=== PATIENT | male | born 1950 | race Caucasian/White ===

== ENCOUNTER → 2017-12-02 08:15 | Outpatient (CLI) | payer MEDICARE, OTHER, SELFPAY ==
--- NOTE | 2017-12-02 09:20 | PM.TREADMILL ---
Cardiac Stress Test Report Referral & Results Date Patient Seen: 12/02/17 Time Patient Seen: 09:20 Requesting provider: Arleen Bernstein Indication: Chest pain with activity Rest ECG: Unremarkable Procedure Note: Today following both written and verbal informed consent, the patient was exercised according to a standard [facility] protocol. The patient exercised for a total of 8 min 32 sec achieving a maximum heart rate of 173. Patient's maximum systolic blood pressure was 200. This was an estimated 10.1 MET's. With exercise patient did have some nonspecific ST-T segment changes primarily in leads V5 and V6 the with lots of [id number] variability and these changes rapidly resolved in recovery the suggesting nonischemic nature Occasional PVCs and PACs including 3 and 4 beat runs of his supraventricular type tachycardia Functional aerobic impairment rated about-10% on the active scale, or better than average Impression: No clear evidence of ischemia. ST changes are almost certainly nonischemic. Dysrhythmia as above. Average to better than average exercise capacity Please note: Actual ECG tracings can be found in the PACS system.
== END ==
PROVIDERS: PCP Family Medicine; Visit Provider Family Medicine
DX: R07.89 Other chest pain (principal)
CPT/HCPCS: 93016; 93017; 93018

== ENCOUNTER → 2017-12-23 14:05 | Outpatient (CLI) | payer MEDICARE, OTHER, SELFPAY ==
[2017-12-23 15:36] LABS: BUN Creatinine Ratio 21.7 (6-22); Blood Urea Nitrogen 13 mg/dL (9-20); Calcium 9.5 mg/dL (8.4-10.2); Carbon Dioxide 27 mmol/L (22-32); Chloride 101 mmol/L (98-107); Estimated Glomerular Filt Rate > 60.0 mL/min (>60); Glucose 86 mg/dL (80-110); HEMOLYSIS < 15 (0-50); Potassium 5.1 mmol/L (3.4-5.1); Sodium 139 mmol/L (137-145)
== END ==
PROVIDERS: PCP Family Medicine; Visit Provider Family Medicine
DX: I10 Essential (primary) hypertension (principal)
CPT/HCPCS: 36415; 80048

== ENCOUNTER → 2018-05-23 09:56 | Outpatient (CLI) | payer MEDICARE, OTHER, SELFPAY ==
[2018-05-23 10:52] LABS: BUN Creatinine Ratio 21.4 (6-22); Blood Urea Nitrogen 15 mg/dL (9-20); Calcium 9.2 mg/dL (8.4-10.2); Carbon Dioxide 28 mmol/L (22-32); Chloride 102 mmol/L (98-107); Estimated Glomerular Filt Rate > 60.0 mL/min (>60); Glucose 100 mg/dL (80-110); HEMOLYSIS < 15 (0-50); Potassium 5.1 mmol/L (3.4-5.1); Sodium 143 mmol/L (137-145)
== END ==
PROVIDERS: PCP Family Medicine; Visit Provider Family Medicine
DX: I10 Essential (primary) hypertension (principal)
CPT/HCPCS: 36415; 80048

== ENCOUNTER → 2019-03-08 07:11 | Outpatient (CLI) | payer MEDICARE, OTHER, SELFPAY ==
[2019-03-23 10:54] LABS: Testosterone Total 402
[2019-03-23 10:55] LABS: Testosterone Free 54.4
== END ==
PROVIDERS: PCP Family Medicine; Visit Provider Family Medicine
DX: N40.0 Benign prostatic hyperplasia without lower urinary tract symptoms (principal); R79.89 Other specified abnormal findings of blood chemistry
CPT/HCPCS: 36415; 84402; 84403

== ENCOUNTER 2019-08-15 19:02 | Emergency (ER) | payer MEDICARE, OTHER, SELFPAY ==
[2019-08-15 19:14] VITALS: PULSE 72; RESP 18; O2SAT 100; BMI 27.7
[2019-08-15 20:45] VITALS: BP 141/77; PULSE 69; RESP 16; O2SAT 100
--- NOTE | 2019-08-15 20:48 | DI.CT.S_ITS ---
PROCEDURE: CT HEAD/BRAIN WO CON INDICATIONS: FAll, head lac, syncope TECHNIQUE: Noncontrast 4.5 mm thick angled axial sections acquired from the foramen magnum to the vertex, with coronal and sagittal reformats. For radiation dose reduction, the following was used: automated exposure control, adjustment of mA and/or kV according to patient size. COMPARISON: [facility], CT, CT CERVICAL SPINE WO CON, 08/15/2019, 20:57. FINDINGS: Image quality: Excellent. CSF spaces: Basal cisterns are patent. No extra-axial fluid collections. The ventricles are symmetric in size and shape. Brain: No intracranial bleeds or masses. There is cerebral volume loss for age, with resultant ventricular and sulcal prominence. There are very mild periventricular and deep white matter chronic small vessel ischemic changes. There is intracranial internal carotid artery atherosclerosis. Skull and face: Nondisplaced right occipital and suboccipital skull fracture. Sinuses: Visualized sinuses and mastoids are clear. IMPRESSION: 1. Nondisplaced right occipital and suboccipital skull fracture. 2. No evidence of acute stroke, hemorrhage, or mass. Dictated by: Chevy Boone M.D. on 08/15/2019 at 21:23 Approved by: Chevy Boone M.D. on 08/15/2019 at 21:26
--- NOTE | 2019-08-15 20:48 | DI.RAD.S_ITS ---
PROCEDURE: XR CHEST 1V INDICATIONS: Syncope TECHNIQUE: One view of the chest was acquired. COMPARISON: None. FINDINGS: Surgical changes and devices: None. Lungs and pleura: Lungs are clear. No pleural effusions or pneumothorax. Mediastinum: Mediastinal contours appear normal. Heart size is normal. Bones and chest wall: No suspicious bony lesions. Overlying soft tissues appear unremarkable. IMPRESSION: No evidence acute pulmonary process. Dictated by: Chevy Boone M.D. on 08/15/2019 at 21:31 Approved by: Chevy Boone M.D. on 08/15/2019 at 21:32
--- NOTE | 2019-08-15 20:51 | DI.CT.S_ITS ---
PROCEDURE: CT CERVICAL SPINE WO CON INDICATIONS: Fall, head injury TECHNIQUE: Noncontrast 3 mm thick sections acquired from the skull base to the T4 level. Sagittal and coronal reformats were then constructed. For radiation dose reduction, the following was used: automated exposure control, adjustment of mA and/or kV according to patient size. COMPARISON: None. FINDINGS: Image quality: Excellent. Bones: Nondisplaced right occipital/suboccipital skull fracture. No cervical fractures or dislocations. Visualized superior ribs are intact. Mild to moderate cervical spondylitic change. Soft tissues: Prevertebral soft tissues are normal in thickness. No paravertebral hematomas. No apical pneumothoraces. IMPRESSION: 1. No evidence acute cervical fracture or dislocation. 2. Nondisplaced right occipital/suboccipital skull fracture. Dictated by: Chevy Boone M.D. on 08/15/2019 at 21:26 Approved by: Chevy Boone M.D. on 08/15/2019 at 21:28
--- NOTE | 2019-08-15 20:53 | DI.RAD.S_ITS ---
PROCEDURE: XR SACRUM COCCYX MIN 2V INDICATIONS: Fall, coccyx pain TECHNIQUE: 3 views of the sacrum and coccyx acquired. COMPARISON: None. FINDINGS: Bones: No fractures or dislocations. Bone detail somewhat limited on lateral view. No suspicious bony lesions. Soft tissues: Visualized bowel gas pattern is normal. No suspicious soft tissue densities. IMPRESSION: No definite coccygeal fracture identified. However, bone detail somewhat limited on lateral view. Dictated by: Chevy Boone M.D. on 08/15/2019 at 21:32 Approved by: Chevy Boone M.D. on 08/15/2019 at 21:33
--- NOTE | 2019-08-15 21:04 | ED.FALL ---
HPI - Fall <KEI Hu - Last Filed: 08/15/19 22:38> General Chief Complaint: Fall Stated Complaint: head injury s/p fall with LOC Time Seen by Provider: 08/15/19 20:31 Source: patient Mode of arrival: Ambulatory History of Present Illness HPI Narrative: 68yo male presents to the emergency department stating that he was walking to [employer] after a wine tasting when he suddenly felt dizzy. The next thing he remembers was waking up in seen his friends and the paramedics looking over him. Bystanders state a slight he slipped and fell and was unconscious for a few minutes. Patient states he had taken his blood pressure medication earlier that day, had been urinating more frequently, and believes that he had more wine than usual at the wine tasting. He also reported walking quickly up a hill on the way to synagogue. Patient complains of a laceration to the back of his head as well as tailbone pain. He denies taking any blood thinners. He denies chest pain, shortness of breath, fevers, chills, nausea, vomiting, diarrhea, dizziness at this time, headaches, vision changes or other concerns. Patient denies any limb weakness, or other injuries such as shoulder pain or ankle pain. Related Data Home Medications Medication Instructions Recorded Confirmed cholecalciferol (vitamin D3) 1,000 PO QDAY #0 u 02/01/17 02/26/19 [Vitamin D3] sildenafil (pulm.hypertension) 20 mg PO #0 02/01/17 02/26/19 Previous Rx's Medication Instructions Recorded alfuzosin 10 mg PO QDAY #90 tab 06/09/16 latanoprost 0.005 % eye drops 1 drop EYE-BOTH QPM #7.5 ml 08/22/18 hydrochlorothiazide 25 mg tablet 25 mg PO DAILY #90 tab 10/23/18 losartan 100 mg tablet 100 mg PO DAILY #90 tab 12/26/18 Allergies Allergy/AdvReac Type Severity Reaction Status Date / Time No Known Drug Allergies Allergy Verified 02/26/19 11:30 <Julia Josue DO - Last Filed: 08/16/19 03:33> General Source: patient and family Limitations: no limitations History of Present Illness HPI Narrative: Patient was evaluated by myself. Initial history was given to me by nurse practitioner Prince. Patient states that he had walked up a hill and [place] to 1 of the local churches after having been in a wine tasting. He states that he had not had anything to eat for most of the day and has had minimal fluid intake. He states he thinks he probably got a little bit more alcohol than he thought he had a wine tasting. He recalls walking up the steps to the synagogue and slipping and does not recall hitting his head. The next thing he remembered was people as well as the medics standing over him. Patient states he has little bit of pain in the back of his head. Him and his family and friends at bedside states there was blood at the scene it looks that like he had fallen onto flat concrete but was unclear as there were stairs. Patient is unsure if his tetanus is up-to-date. He denies any vision changes, no difficulty with speech, no neck pain, no back pain. He does have pain in his tailbone. He states it feels like it is bruised. He does not feel short of breath. Denies any nausea no vomiting. No lightheadedness or dizziness. He denies any numbness or tingling in his extremities. Review of Systems <KEI Hu - Last Filed: 08/15/19 22:38> Review of Systems Narrative: REVIEW OF SYSTEMS: GENERAL: Denies fever or chills. HENT: Reports head trauma, see HPI. EYES: No loss of vision, double vision, eye pain, or irritation. CARDIOVASCULAR: No chest pain. Reports syncope, see HPI. RESPIRATORY: No shortness of breath or cough. GASTROINTESTINAL: No nausea, vomiting, diarrhea, or constipation. GENITOURINARY: No flank pain or dysuria. MUSCULOSKELETAL: No pain, weakness, or deformities. INTEGUMENTARY: Reports laceration to the back side, see HPI. NEURO: No numbness, tingling, memory loss, or confusion. PSYCH: No behavior or mood changes. Patient History <KEI Hu - Last Filed: 08/15/19 22:38> Medical History BPH (benign prostatic hyperplasia) (Chronic) Essential hypertension (Chronic) Surgical History S/P Mohs surgery for basal cell carcinoma (Resolved) S/P right rotator cuff repair (Resolved) Family History Father Coronary artery disease Brother Coronary artery disease Mother Coronary artery disease Diabetes mellitus Social History marital status: lives independently: Yes occupational status: other (Retired) Smoking Status: Former smoker alcohol intake: current substance use type: does not use Smoking Status: Former smoker alcohol intake frequency: 0-2 drinks per day Alcohol type: wine and hard liquor Substance Use Type: does not use Exam <KEI Hu - Last Filed: 08/15/19 22:38> Initial Vital Signs Initial Vital Signs: Vital Signs Pulse Rate 72 08/15/19 19:14 Respiratory Rate 18 08/15/19 19:14 Pulse Oximetry 100 08/15/19 19:14 PHYSICAL EXAMINATION: GENERAL: Well groomed, alert, and cooperative Answers questions promptly and appropriately. Vital signs noted. HENT: A 2 cm laceration noted to the occipital area of head, very many amount of swelling around laceration, bleeding controlled with gauze upon arrival. Ear canals patent, Oral mucosa is pink and moist, no caries or lesions present. Pharynx without erythema. EYES: PERRLA, EOMIs, conjunctiva pink, sclera white, no periorbital swelling. NECK: Full range of motion, nontender. Patient was placed in C-collar for precautions. LYMPH: No lymphadenopathy. CHEST: Normal to inspection and without deformities. CARDIOVASCULAR: S1 and S2 sounds normal. Regular rate and rhythm, no murmurs, clicks, or bruits. No pedal edema. RESPIRATORY: Normal respiratory rate, trachea midline, airway patent. No stridor, nasal flaring or accessory muscle use. Lungs are clear in all patten without wheeze, rhonchi, or crackles. GASTROINTESTINAL: Bowel sounds normoactive. Abdomen is soft and non-tender. No organomegaly. MUSCULOSKELETAL: Tenderness to palpation of coccyx, no hip or pelvis tenderness, no upper or lower extremity tenderness or swelling or deformity. Equal tone and mass bilaterally. No spinal tenderness or deformities. EXTREMITIES: CMS intact. Full range of motion and 5/5 strength to upper and lower extremities SKIN: Warm, dry, soft, appropriate color for ethnicity. No lesions, rashes, or wounds to visualized areas. NEURO: Alert and Oriented X 3. CN III-XII intact. Good coordination. No ataxia, or sensory deficits, or cognitive issues. PSYCH: Appropriate affect and mood. <Julia Josue, DO - Last Filed: 08/16/19 03:33> Narrative Exam Narrative: GEN: C-collar in ED. Patient appears in mild distress. HEAD: Patient has a laceration posterior scalp that is 1.5cm and irregular line that gaps when pulled apart, no raccoon/Villalobos sign. Patient non-tender over posterior occiput bilaterally. NECK: Nontender, painless range of motion, trachea midline Positive for Nexus criteria, there is no mid-line tenderness, distracting injury, altered mental status, neuro deficit, positive for recent EtOH. EYES: PERRLA, EOMI ENT: External inspection normal, trachea is midline, TM's are normal no hemotypanum, Nares are clear, no septal hematoma, no dental or oral injury, airway is normal and with normal occlusion, No bony tenderness. RESP: Chest is nontender and has symmetric movement, no ecchymosis, breath sounds are normal no crackles, wheezes or rales CVS: Heart sounds are normal, no murmur noted, No JVD. ABG/GI: Nontender, soft, normal bowel sounds, no distention, no organomegaly, pelvic rock is negative. NEURO: Oriented AOx3, neuro is grossly intact, sensation and motor is normal all 4 extremities moving, cranial nerves II through XII are intact, GCS is 15 PSYCH: Normal mood and affect SKIN: Intact, warm and dry, no crepitus and without decubitus BACK: No CVA tenderness, no vertebral tenderness, no step-off's, no crepitus EXT: Atraumatic, hips are nontender, no pedal edema, normal color and temperature, normal range of motion of extremities with normal tendon exam, 2+ pulses in all four extremities Initial Vital Signs Initial Vital Signs: Vital Signs Pulse Rate 72 08/15/19 19:14 Respiratory Rate 18 08/15/19 19:14 Pulse Oximetry 100 08/15/19 19:14 <Julia Josue, DO - Last Filed: 08/16/19 03:33> Laceration Repair Laceration 1: Site: scalp (mid-scalp) Size (cm): 1.5 Description: irregular Depth: simple, single layer Pre-repair: wound explored and irrigated extensively Skin layer closed with: gianni (#3/) Scores <Akanksha Morrison ROUTE AGENT - Last Filed: 08/15/19 22:38> GCS Augie coma scale eye opening: Spontaneous Augie coma scale verbal response: Orientated [place] coma scale motor response: Obey commands [place] coma scale total score: 15 NIH Stroke Scale Level of Conciousness: Alert, keenly responsive Ask month/age: Answers both questions correctly. Open/close eyes, close hand: Performs both tasks correctly Best gaze horizontal: Normal Visual patten: No visual loss Facial palsy: Normal symetrical movement Left arm drift: No drift for full 10 sec Right arm drift: No drift for full 10 sec Left leg drift: No drift for full 10 sec Right leg drift: No drift for full 10 sec Limb ataxia: Absent Sensory on face/arms/legs: Normal, no sensory loss Best language: No aphasia, normal Dysarthria: Normal Extinction or inattention: No abnormality Total NIH Stroke scale score: 0 Course <Akanksha KEI Morrison - Last Filed: 08/15/19 22:38> Course Course Narrative: Images were pushed [facility] for consultation, I spoke with [facility] transfer center RN requesting consultation with neurosurgeon for isolated skull fracture. Patient remained in C-collar after results of CT as precaution until consultation with neurosurgeon. Patient was signed out to Dr. Josue at 2238 for continued care. Orders Ordered: ED Orders 08/15/19 20:48 CT head/brain wo con Stat XR chest 1V Stat 08/15/19 20:51 CT cervical spine wo con Stat 08/15/19 20:53 XR sacrum coccyx min 2V Stat 08/15/19 21:25 EKG-12 Lead Stat 08/15/19 21:50 Complete Blood Count AUTO DIFF Stat Comprehensive Metabolic Panel Stat Ethanol (ETOH) Stat Troponin & CK Cardiac Panel Stat Discontinued Medications Diphtheria/Tetanus/Acell Pertussis (Adacel) 0.5 ml IM .ONCE ONE Stop: 08/15/19 23:30 Last Admin: 08/15/19 23:34 Dose: 0.5 ml Documented by: ANDREA Cefazolin Sodium/Dextrose (Ancef) 2 gm in 100 mls @ 200 mls/hr IV NOW ONE Stop: 08/15/19 22:46 Last Infusion: 08/15/19 23:58 Dose: 0 mls/hr Documented by: Admin: 08/15/19 22:42 Dose: 200 mls/hr Documented by: ANDREA Consultations Consultation #1: Patient staffed with Dr. Josue. Vital Signs Vital signs: Vital Signs - 8 hr 08/15/19 20:45 08/15/19 22:31 08/16/19 00:01 Temperature 99.5 F Pulse Rate 69 76 74 Respiratory Rate 16 17 17 Blood Pressure 137/64 Blood Pressure [Right Arm] 141/77 H 144/76 H Pulse Oximetry 100 98 98 <Julia Josue, - Last Filed: 08/16/19 03:33> Orders Ordered: ED Orders 08/15/19 20:48 CT head/brain wo con Stat XR chest 1V Stat 08/15/19 20:51 CT cervical spine wo con Stat 08/15/19 20:53 XR sacrum coccyx min 2V Stat 08/15/19 21:25 EKG-12 Lead Stat 08/15/19 21:50 Complete Blood Count AUTO DIFF Stat Comprehensive Metabolic Panel Stat Ethanol (ETOH) Stat Troponin & CK Cardiac Panel Stat Discontinued Medications Diphtheria/Tetanus/Acell Pertussis (Adacel) 0.5 ml IM .ONCE ONE Stop: 08/15/19 23:30 Last Admin: 08/15/19 23:34 Dose: 0.5 ml Documented by: ANDREA Cefazolin Sodium/Dextrose (Ancef) 2 gm in 100 mls @ 200 mls/hr IV NOW ONE Stop: 08/15/19 22:46 Last Infusion: 08/15/19 23:58 Dose: 0 mls/hr Documented by: Admin: 08/15/19 22:42 Dose: 200 mls/hr Documented by: ANDREA Vital Signs Vital signs: Vital Signs - 8 hr 08/15/19 20:45 08/15/19 22:31 08/16/19 00:01 Temperature 99.5 F Pulse Rate 69 76 74 Respiratory Rate 16 17 17 Blood Pressure 137/64 Blood Pressure [Right Arm] 141/77 H 144/76 H Pulse Oximetry 100 98 98 MDM - Fall <KEI Hu - Last Filed: 08/15/19 22:38> Medical Records Attestation: I reviewed the patient's medical records. Lab Data Attestation: I reviewed the patient's lab results. Result diagrams: 08/15/19 21:50 08/15/19 21:50 Labs: Lab Results 08/15/19 08/15/19 08/15/19 Range/Units 21:50 21:50 21:50 WBC 11.8 H (4.5-11.0) X10^3/uL RBC 4.64 (4.5-5.9) X10^6/uL Hgb 14.5 (13.5-17.5) g/dL Hct 42.8 (41-53) % MCV 92.2 (80-100) fL MCH 31.3 (26-34) PG MCHC 33.9 (30-36) % RDW 12.5 (11.6-14.8) % Plt Count 177 (150-400) X10^3/uL Neut % (Auto) 86.3 H (50-75) % Lymph % (Auto) 7.2 L (25-40) % [place] % (Auto) 6.0 (3-14) % Eos % (Auto) 0.3 L (2-4) % Baso % (Auto) 0.2 (0-2) % Neut # (Auto) 10993 H (5182-7318) /uL Lymph # (Auto) 800 L (5414-8480) /uL [place] # (Auto) 700 (0-900) /uL Eos # (Auto) 0 (0-450) /uL Baso # (Auto) 0 (0-100) /uL Sodium 135 L (137-145) mmol/L Potassium 3.7 (3.4-5.1) mmol/L Chloride 96 L (98-107) mmol/L Carbon Dioxide 26 (22-32) mmol/L BUN 8 L (9-20) mg/dL Creatinine 0.70 (0.66-1.25) mg/dL Estimated GFR > 60.0 (>60) mL/min BUN/Creatinine Ratio 11.4 (6-22) Glucose 96 (80-110) mg/dL Calcium 9.6 (8.4-10.2) mg/dL Total Bilirubin 0.6 (0.2-1.3) mg/dL AST 29 (17-59) IU/L ALT 24 (<50) IU/L Alkaline Phosphatase 27 L (38-126) U/L Total Creatine Kinase 145 (55-170) U/L CK-MB (CK-2) 2.52 H (<2.37) ng/mL CK-MB (CK-2) Rel Index 1.7 (1.5-5.0) % Troponin I < 0.012 (0.01-0.034) ng/mL Total Protein 8.0 (6.3-8.2) g/dL Albumin 4.9 (3.5-5.0) g/dL Globulin 3.1 (1.7-4.1) g/dL Albumin/Globulin Ratio 1.6 (1.0-2.8) Ethyl Alcohol 54 H ( - 10) mg/dL Imaging Data CT scan - head: Radiologist's Impression: [address] [address] [address] Scan Report Signed Patient: Ramsey Hinojosa [facility]#: [id number] : 3Acct:[id number] Age/Sex: 68 / MDate of Service: 08/15/19 Loc: ED Accession Number: [id number] Procedure: CT head/brain wo con Ordering Provider: Akanksha Morrison PROCEDURE: CT HEAD/BRAIN WO CON INDICATIONS: FAll, head lac, syncope TECHNIQUE: Noncontrast 4.5 mm thick angled axial sections acquired from the foramen magnum to the vertex, with coronal and sagittal reformats. For radiation dose reduction, the following was used: automated exposure control, adjustment of mA and/or kV according to patient size. COMPARISON: [facility], CT, CT CERVICAL SPINE WO CON, 08/15/2019, 20:57. FINDINGS: Image quality: Excellent. CSF spaces: Basal cisterns are patent. No extra-axial fluid collections. The ventricles are symmetric in size and shape. Brain: No intracranial bleeds or masses. There is cerebral volume loss for age, with resultant ventricular and sulcal prominence. There are very mild periventricular and deep white matter chronic small vessel ischemic changes. There is intracranial internal carotid artery atherosclerosis. Skull and face: Nondisplaced right occipital and suboccipital skull fracture. Sinuses: Visualized sinuses and mastoids are clear. IMPRESSION: 1. Nondisplaced right occipital and suboccipital skull fracture. 2. No evidence of acute stroke, hemorrhage, or mass. Dictated by: Chevy Boone M.D. on 08/15/2019 at 21:23 Approved by: Chevy Boone M.D. on 08/15/2019 at 21:26 Chest x-ray: Radiologist's Impression: [address] [address] XRay Report Signed Patient: Ramsey Hinojosa [facility]#: [id number] : 3Acct:[id number] Age/Sex: 68 / MDate of Service: 08/15/19 Loc: ED Accession Number: [id number] Procedure: XR chest 1V Ordering Provider: Akanksha Morrison PROCEDURE: XR CHEST 1V INDICATIONS: Syncope TECHNIQUE: One view of the chest was acquired. COMPARISON: None. FINDINGS: Surgical changes and devices: None. Lungs and pleura: Lungs are clear. No pleural effusions or pneumothorax. Mediastinum: Mediastinal contours appear normal. Heart size is normal. Bones and chest wall: No suspicious bony lesions. Overlying soft tissues appear unremarkable. IMPRESSION: No evidence acute pulmonary process. Dictated by: Chevy Boone M.D. on 08/15/2019 at 21:31 Approved by: Chevy Boone M.D. on 08/15/2019 at 21:[address]: Radiologist's Impression: [address] [address] [address] Scan Report Signed Patient: Ramsey Hinojosa [facility]#: [id number] : 3At:[id number] Age/Sex: 68 / MDate of Service: 08/15/19 Loc: ED Accession Number: [id number] Procedure: CT cervical spine wo con Ordering Provider: Akanksha Morrison PROCEDURE: CT CERVICAL SPINE WO CON INDICATIONS: Fall, head injury TECHNIQUE: Noncontrast 3 mm thick sections acquired from the skull base to the T4 level. Sagittal and coronal reformats were then constructed. For radiation dose reduction, the following was used: automated exposure control, adjustment of mA and/or kV according to patient size. COMPARISON: None. FINDINGS: Image quality: Excellent. Bones: Nondisplaced right occipital/suboccipital skull fracture. No cervical fractures or dislocations. Visualized superior ribs are intact. Mild to moderate cervical spondylitic change. Soft tissues: Prevertebral soft tissues are normal in thickness. No paravertebral hematomas. No apical pneumothoraces. IMPRESSION: 1. No evidence acute cervical fracture or dislocation. 2. Nondisplaced right occipital/suboccipital skull fracture. Dictated by: Chevy Boone M.D. on 08/15/2019 at 21:26 Approved by: Chevy Boone M.D. on 08/15/2019 at 21:28 Coccyx XR: Radiologist's Impression: [address] [place] [id number] XRay Report Signed Patient: Ramsey Hinojosa MMR#: [id number] : 3Acct:[id number] Age/Sex: 68 / MDate of Service: 08/15/19 Loc: ED Accession Number: [id number] Procedure: XR sacrum coccyx min 2V Ordering Provider: Akanksha Morrison PROCEDURE: XR SACRUM COCCYX MIN 2V INDICATIONS: Fall, coccyx pain TECHNIQUE: 3 views of the sacrum and coccyx acquired. COMPARISON: None. FINDINGS: Bones: No fractures or dislocations. Bone detail somewhat limited on lateral view. No suspicious bony lesions. Soft tissues: Visualized bowel gas pattern is normal. No suspicious soft tissue densities. IMPRESSION: No definite coccygeal fracture identified. However, bone detail somewhat limited on lateral view. Dictated by: Chevy Boone M.D. on 08/15/2019 at 21:32 Approved by: Chevy Boone M.D. on 08/15/2019 at 21:33 <Julia Josue, - Last Filed: 08/16/19 03:33> Lab Data Attestation: I reviewed the patient's lab results. Labs: Lab Results 08/15/19 08/15/19 08/15/19 Range/Units 21:50 21:50 21:50 WBC 11.8 H (4.5-11.0) X10^3/uL RBC 4.64 (4.5-5.9) X10^6/uL Hgb 14.5 (13.5-17.5) g/dL Hct 42.8 (41-53) % MCV 92.2 (80-100) fL MCH 31.3 (26-34) PG MCHC 33.9 (30-36) % RDW 12.5 (11.6-14.8) % Plt Count 177 (150-400) X10^3/uL Neut % (Auto) 86.3 H (50-75) % Lymph % (Auto) 7.2 L (25-40) % [place] % (Auto) 6.0 (3-14) % Eos % (Auto) 0.3 L (2-4) % Baso % (Auto) 0.2 (0-2) % Neut # (Auto) 11507 H (3590-7052) /uL Lymph # (Auto) 800 L (0177-9524) /uL [place] # (Auto) 700 (0-900) /uL Eos # (Auto) 0 (0-450) /uL Baso # (Auto) 0 (0-100) /uL Sodium 135 L (137-145) mmol/L Potassium 3.7 (3.4-5.1) mmol/L Chloride 96 L (98-107) mmol/L Carbon Dioxide 26 (22-32) mmol/L BUN 8 L (9-20) mg/dL Creatinine 0.70 (0.66-1.25) mg/dL Estimated GFR > 60.0 (>60) mL/min BUN/Creatinine Ratio 11.4 (6-22) Glucose 96 (80-110) mg/dL Calcium 9.6 (8.4-10.2) mg/dL Total Bilirubin 0.6 (0.2-1.3) mg/dL AST 29 (17-59) IU/L ALT 24 (<50) IU/L Alkaline Phosphatase 27 L (38-126) U/L Total Creatine Kinase 145 (55-170) U/L CK-MB (CK-2) 2.52 H (<2.37) ng/mL CK-MB (CK-2) Rel Index 1.7 (1.5-5.0) % Troponin I < 0.012 (0.01-0.034) ng/mL Total Protein 8.0 (6.3-8.2) g/dL Albumin 4.9 (3.5-5.0) g/dL Globulin 3.1 (1.7-4.1) g/dL Albumin/Globulin Ratio 1.6 (1.0-2.8) Ethyl Alcohol 54 H ( - 10) mg/dL Imaging Data CT scan - head: Radiologist's Impression: [address] [address] [address] Scan Report Signed Patient: Ramsey Hinojosa [facility]#: [id number] : 1950cct:[id number] Age/Sex: 68 / MDate of Service: 08/15/19 Loc: ED Accession Number: [id number] Procedure: CT head/brain wo con Ordering Provider: Akanksha Morrison PROCEDURE: CT HEAD/BRAIN WO CON INDICATIONS: FAll, head lac, syncope TECHNIQUE: Noncontrast 4.5 mm thick angled axial sections acquired from the foramen magnum to the vertex, with coronal and sagittal reformats. For radiation dose reduction, the following was used: automated exposure control, adjustment of mA and/or kV according to patient size. COMPARISON: [facility], CT, CT CERVICAL SPINE WO CON, 08/15/2019, 20:57. FINDINGS: Image quality: Excellent. CSF spaces: Basal cisterns are patent. No extra-axial fluid collections. The ventricles are symmetric in size and shape. Brain: No intracranial bleeds or masses. There is cerebral volume loss for age, with resultant ventricular and sulcal prominence. There are very mild periventricular and deep white matter chronic small vessel ischemic changes. There is intracranial internal carotid artery atherosclerosis. Skull and face: Nondisplaced right occipital and suboccipital skull fracture. Sinuses: Visualized sinuses and mastoids are clear. IMPRESSION: 1. Nondisplaced right occipital and suboccipital skull fracture. 2. No evidence of acute stroke, hemorrhage, or mass. Dictated by: Chevy Boone M.D. on 08/15/2019 at 21:23 Approved by: Chevy Boone M.D. on 08/15/2019 at 21:26 Chest x-ray: Radiologist's Impression: Ramsey Hinojosa 68 M [address] [address] XRay Report Signed Patient: Ramsey Hinojosa MMR#: [id number] : 1950cct:[id number] Age/Sex: 68 / MDate of Service: 08/15/19 Loc: ED Accession Number: [id number] Procedure: XR chest 1V Ordering Provider: Akanksha Morrison PROCEDURE: XR CHEST 1V INDICATIONS: Syncope TECHNIQUE: One view of the chest was acquired. COMPARISON: None. FINDINGS: Surgical changes and devices: None. Lungs and pleura: Lungs are clear. No pleural effusions or pneumothorax. Mediastinum: Mediastinal contours appear normal. Heart size is normal. Bones and chest wall: No suspicious bony lesions. Overlying soft tissues appear unremarkable. IMPRESSION: No evidence acute pulmonary process. Dictated by: Chevy Boone M.D. on 08/15/2019 at 21:31 Approved by: Chevy Boone M.D. on 08/15/2019 at 21:32 CT - cervical spine: Radiologist's Impression: Ramsey Hinojosa 68 M 1950 [place] [address] CT Scan Report Signed Patient: Ramsey Hinojosa MMR#: [id number] : 1950t:[id number] Age/Sex: 68 / MDate of Service: 08/15/19 Loc: ED Accession Number: [id number] Procedure: CT cervical spine wo con Ordering Provider: Akanksha Morrison PROCEDURE: CT CERVICAL SPINE WO CON INDICATIONS: Fall, head injury TECHNIQUE: Noncontrast 3 mm thick sections acquired from the skull base to the T4 level. Sagittal and coronal reformats were then constructed. For radiation dose reduction, the following was used: automated exposure control, adjustment of mA and/or kV according to patient size. COMPARISON: None. FINDINGS: Image quality: Excellent. Bones: Nondisplaced right occipital/suboccipital skull fracture. No cervical fractures or dislocations. Visualized superior ribs are intact. Mild to moderate cervical spondylitic change. Soft tissues: Prevertebral soft tissues are normal in thickness. No paravertebral hematomas. No apical pneumothoraces. IMPRESSION: 1. No evidence acute cervical fracture or dislocation. 2. Nondisplaced right occipital/suboccipital skull fracture. Dictated by: Chevy Boone M.D. on 08/15/2019 at 21:26 Approved by: Chevy Boone M.D. on 08/15/2019 at 21:28 coccyx xray: Radiologist's Impression: [address] [place] [address] XRay Report Signed Patient: Ramsey Hinojosa MMR#: [id number] : 3Acct:[id number] Age/Sex: 68 / MDate of Service: 08/15/19 Loc: ED Accession Number: [id number] Procedure: XR sacrum coccyx min 2V Ordering Provider: Akanksha Morrison PROCEDURE: XR SACRUM COCCYX MIN 2V INDICATIONS: Fall, coccyx pain TECHNIQUE: 3 views of the sacrum and coccyx acquired. COMPARISON: None. FINDINGS: Bones: No fractures or dislocations. Bone detail somewhat limited on lateral view. No suspicious bony lesions. Soft tissues: Visualized bowel gas pattern is normal. No suspicious soft tissue densities. IMPRESSION: No definite coccygeal fracture identified. However, bone detail somewhat limited on lateral view. Dictated by: Chevy Boone M.D. on 08/15/2019 at 21:32 Approved by: Chevy Boone M.D. on 08/15/2019 at 21:33 ECG Data Attestation: I personally reviewed and interpreted this ECG as follows: Interpretation: Sinus rhythm rate of 70 IA interval 160 QRS of 94 and QTC of [address] elevation depression appreciated. [facility] Narrative Medical decision making narrative: Patient was seen and evaluated by myself patient was noted to have a right occipital/suboccipital fracture on CT of the head as well as C-spine which was noted. Patient labs were drawn after my evaluation and alcohol is 54. Patient's GCS is 15 he is A&O x4. Patient has a small laceration posterior mid scalp. He is nontender over the area of fracture and case was discussed with Dr. Linares from neurosurgery at [facility]. Non-surgical intervention, if patient is severe concussion would be appropriate to observe here at [facility] but if is neurological intact and without symptoms would be appropriate for d/c home. Patient is appropriate. EKG, labs are negative, remaining imaging is negative. Patient did have small laceration but does not appear to be over the area of fracture. Initially he received a dose of IV antibiotics but these are deferred as outpatient as this is does not appear to be an open fracture. Patient was able to ambulate in the department without issue. He does not have any concussive symptoms at this time. We discussed signs and symptoms to watch for with him as well as his who will continue to monitor him and reasons to return emergently with strict return precautions. Discharge Plan Departure Patient Disposition: Home Clinical Impression: Fracture of occipital bone of skull with loss of consciousness Laceration of scalp Qualifiers: Encounter type: initial encounter Qualified Code(s): S01.01XA - Laceration without foreign body of scalp, initial encounter Discharge Date/Time: 08/16/19 00:03 Instructions: DI for Skull Fracture Activity Restrictions/Additional Instructions: Follow up with your physician in the next 2-3 days for recheck. You may take tylenol up to 1000mg every 8 hours as needed for pain. You may continue your home medications as prescribed. Return to the ER for alterations in mental, confusion, sudden severe headaches, new vision changes, difficulty with speech, if 1 pupil is larger than the other, persistent vomiting, new numbness, weakness, difficulty with movement or any other new or concerning symptoms. Return if fever greater than 100.4 Fahrenheit, increased swelling, increasing pain or worsening symptoms such as increased discharge or spreading redness. Wound Care: Keep wound(s) clean and dry. Wash daily with soap and water only. Do not use over the counter products (alcohol or peroxide)on the wounds unless instructed by a physician. If wound condition worsens (increased/expanding redness, developing fluid blisters, or worsening pain), either contact your doctor for an urgent re-assessment , or return to the Emergency Department. Return to the Emergency Department for any new or worsening symptoms. Return to the ED, urgent care, or vist a primary care doctor for removal or suture or gianni in 7-10 days. Prescriptions: No Action alfuzosin 10 MG tablet extended release 24 hr 10 mg PO QDAY Qty: 90 RF: 1 sildenafil (pulm.hypertension) 20 MG tablet 20 mg PO Qty: 0 RF: 0 cholecalciferol (vitamin D3) [Vitamin D3] 1,000 UNIT tablet 1,000 PO QDAY Qty: 0 RF: 0 hydrochlorothiazide 25 mg tablet 25 mg PO DAILY Qty: 90 RF: 3 losartan 100 mg tablet 100 mg PO DAILY Qty: 90 RF: 3 latanoprost 0.005 % drops 1 drop EYE-BOTH QPM Qty: 7.5 RF: 0 Referrals: Arleen Bernstein DO [Primary Care Provider] -
[2019-08-15 21:57] LABS: Add Manual Diff / Slide Review NO; Basophils Absolute Auto 0 /uL (0-100); Basophils Percent Auto 0.2 % (0-2); Eosinophils Absolute Auto 0 /uL (0-450); Eosinophils Percent Auto 0.3 % (2-4); Hematocrit 42.8 % (41-53); Hemoglobin 14.5 g/dL (13.5-17.5); Lymphocytes Absolute Auto 800 /uL (1100-4500); Lymphocytes Percent Auto 7.2 % (25-40); Mean Corpuscular HGB Conc 33.9 % (30-36); Mean Corpuscular Hemoglobin 31.3 PG (26-34); Mean Corpuscular Volume 92.2 fL (80-100); Monocytes Absolute Auto 700 /uL (0-900); Neutrophils Absolute Auto 10200 /uL (1500-7000); Neutrophils Percent Auto 86.3 % (50-75); Platelet Count 177 X10^3/uL (150-400); Red Blood Cell Count 4.64 X10^6/uL (4.5-5.9); Red Cell Distribution Width 12.5 % (11.6-14.8); White Blood Cell Count 11.8 X10^3/uL (4.5-11.0)
[2019-08-15 22:07] LABS: Ethanol (ETOH) 54 mg/dL
[2019-08-15 22:08] LABS: Alanine Aminotransferase 24 IU/L (<50); Albumin 4.9 g/dL (3.5-5.0); Albumin Globulin Ratio 1.6 (1.0-2.8); Alkaline Phosphatase 27 U/L (38-126); Aspartate Aminotransferase 29 IU/L (17-59); BUN Creatinine Ratio 11.4 (6-22); Bilirubin Total 0.6 mg/dL (0.2-1.3); Blood Urea Nitrogen 8 mg/dL (9-20); Calcium 9.6 mg/dL (8.4-10.2); Carbon Dioxide 26 mmol/L (22-32); Chloride 96 mmol/L (98-107); Creatine Kinase 145 U/L (55-170); Estimated Glomerular Filt Rate > 60.0 mL/min (>60); Globulin 3.1 g/dL (1.7-4.1); Glucose 96 mg/dL (80-110); Potassium 3.7 mmol/L (3.4-5.1); Sodium 135 mmol/L (137-145)
[2019-08-15 22:20] LABS: Troponin I < 0.012 ng/mL (0.01-0.034)
[2019-08-15 22:23] LABS: CKMB % Relative Index 1.7 % (1.5-5.0); Creatine Kinase MB 2.52 ng/mL (<2.37)
[2019-08-15 22:27] LABS: HEMOLYSIS 36 (0-50)
[2019-08-15 22:31] VITALS: BP 144/76; PULSE 76; RESP 17; TEMP 37.5; O2SAT 98
[2019-08-15] MEDS: CEFAZOLIN 2 GM/100 ML FROZ.PIGGY IV (22:42)
[2019-08-15] MEDS: TET,DIPH,PERTUSS(ACELL),VAC/PF 0.5 ML SYRINGE IM (23:34)
[2019-08-16 00:01] VITALS: BP 137/64; PULSE 74; RESP 17; O2SAT 98
== END 2019-08-16 00:03 | disposition home or self-care (01) ==
PROVIDERS: Nurse Practitioner; Emergency Provider Emergency Medicine; Family Provider Family Medicine; PCP Family Medicine
DX: S02.119A Unspecified fracture of occiput, initial encounter for closed fracture (principal); S01.01XA Laceration without foreign body of scalp, initial encounter; Z23 Encounter for immunization; R55 Syncope and collapse; R42 Dizziness and giddiness; W01.0XXA Fall on same level from slipping, tripping and stumbling without subsequent striking against object, initial encounter
CPT/HCPCS: 36415; 70450; 71045; 72125; 72220; 80053; 80320; 82550; 82553; 84484; 85025; 90471; 93005; 96365; 99285; 90715; J0690

== ENCOUNTER → 2019-08-23 15:10 | Outpatient (CLI) | payer MEDICARE, OTHER, SELFPAY ==
[2019-08-23 16:06] LABS: Hematocrit 41.9 % (41-53); Hemoglobin 14.3 g/dL (13.5-17.5); Mean Corpuscular HGB Conc 34.2 % (30-36); Mean Corpuscular Hemoglobin 31.6 PG (26-34); Mean Corpuscular Volume 92.3 fL (80-100); Platelet Count 191 X10^3/uL (150-400); Red Blood Cell Count 4.54 X10^6/uL (4.5-5.9); Red Cell Distribution Width 12.5 % (11.6-14.8); White Blood Cell Count 4.8 X10^3/uL (4.5-11.0)
[2019-08-23 16:18] LABS: Alanine Aminotransferase 24 IU/L (<50); Albumin Globulin Ratio 1.6 (1.0-2.8); Alkaline Phosphatase 32 U/L (38-126); Aspartate Aminotransferase 25 IU/L (17-59); BUN Creatinine Ratio 17.8 (6-22); Bilirubin Total 0.5 mg/dL (0.2-1.3); Blood Urea Nitrogen 16 mg/dL (9-20); Calcium 10.1 mg/dL (8.4-10.2); Carbon Dioxide 28 mmol/L (22-32); Chloride 98 mmol/L (98-107); Estimated Glomerular Filt Rate > 60.0 mL/min (>60); Globulin 3.2 g/dL (1.7-4.1); Glucose 106 mg/dL (80-110); HEMOLYSIS < 15 (0-50); Potassium 4.4 mmol/L (3.4-5.1); Sodium 140 mmol/L (137-145); Total Protein 8.2 g/dL (6.3-8.2)
[2019-08-23 17:10] LABS: TSH w/ Reflex to FT4 2.89 uIU/mL (0.47-4.68)
[2019-08-23 17:40] LABS: Neutrophils Absolute Manual 2592 /uL (3000-5900); RBC Morphology Normal Morphology; Total Cells Counted 100
== END ==
PROVIDERS: Family Provider Family Medicine; PCP Family Medicine; Referring Provider Family Medicine; Visit Provider Family Medicine
DX: K59.00 Constipation, unspecified (principal); R55 Syncope and collapse
CPT/HCPCS: 36415; 80053; 84443; 85025

== ENCOUNTER → 2019-08-30 14:35 | Outpatient (CLI) | payer MEDICARE, OTHER, SELFPAY ==
--- NOTE | 2019-09-14 16:04 | PM.CARDMON.1 ---
Electrocardiograph Operator Report Referral & Results Date Patient Seen: 08/30/19 Requesting provider: Arleen Bernstein Indication: Syncope Duration of monitoring (days): 7 Diary information: There were 8 patient triggered events and 8 patient diary entries These events and entries were associated with sinus rhythm, PVCs and PACs Data: Minimum heart rate identified was 50 beats per minute at 05:32 on 09/04/2019 Maximum sinus heart rate was 137 beats per minute at 08:21 on 09/02/2019 Maximum overall heart rate was 193 beats per minute at 17:52 on 09/01/2019 during a 5 beat run of SVT Approximately 4.9% of identified beats were supraventricular ectopic in origin Less than 1% of identified beats were ventricular ectopic in origin Patient had 1 5 beat run of ventricular tachycardia There were 20 runs of supraventricular tachycardia/atrial tachycardia with the fastest being the 5 beat run as above at 193 beats per minute the longest being 8 beats at a rate of 100 (which suggest atrial tachycardia rather than true SVT) Impression: Minor dysrhythmias as above with the exception of a single 5 beat run of ventricular tachycardia No etiology for syncope
== END ==
PROVIDERS: Family Provider Family Medicine; PCP Family Medicine; Referring Provider Family Medicine; Visit Provider Family Medicine
DX: R55 Syncope and collapse (principal)
CPT/HCPCS: 0296T; 0298T

== ENCOUNTER → 2019-10-02 11:00 | Outpatient (CLI) | payer MEDICARE, OTHER, SELFPAY ==
--- NOTE | 2019-10-02 11:02 | DI.US.S_ITS ---
PROCEDURE: US CAROTID DOPPLER BI INDICATIONS: SYNCOPAL EPISODE TECHNIQUE: Color and pulse Doppler interrogation was performed of both carotid systems, with image documentation and velocity measurements. COMPARISON: None. FINDINGS: Stenosis calculations are based on SRU (Society of Radiologists in Ultrasound) criteria. Right side: Brachial blood pressure: 90/63 mm Hg. Common carotid artery peak systolic velocity: 99 cm/sec. Internal carotid artery peak systolic velocity: 87 cm/sec. Internal carotid artery end diastolic velocity: 33 cm/sec. External carotid artery peak systolic velocity: 88 cm/sec. ICA/CCA peak systolic ratio: 0.9. Anderson scale imaging description: Minimal calcific plaque Percent internal carotid artery stenosis: Less than 50% stenosis. Vertebral artery: Flow direction is antegrade. Left side: Brachial blood pressure: 103/69 mm Hg. Common carotid artery peak systolic velocity: 97 cm/sec. Internal carotid artery peak systolic velocity: 93 cm/sec. Internal carotid artery end diastolic velocity: 37 cm/sec. External carotid artery peak systolic velocity: 75 cm/sec. ICA/CCA peak systolic ratio: 1.0. Anderson scale imaging description: Minimal calcific plaque Percent internal carotid artery stenosis: Less than 50% stenosis. Vertebral artery: Flow direction is antegrade. IMPRESSION: Less than 50% stenosis at the proximal internal carotid arteries bilaterally. Vertebral arterial flow is antegrade in direction. Dictated by: Aly Coffman M.D. on 10/02/2019 at 12:35 Approved by: Aly Coffman M.D. on 10/02/2019 at 12:36
== END ==
PROVIDERS: Family Provider Family Medicine; PCP Family Medicine; Referring Provider Family Medicine; Visit Provider Family Medicine
DX: R55 Syncope and collapse (principal); I65.23 Occlusion and stenosis of bilateral carotid arteries
CPT/HCPCS: 93880

== ENCOUNTER → 2020-02-29 13:06 | Outpatient (CLI) | payer MEDICARE, OTHER, SELFPAY ==
[2020-02-29 15:28] LABS: Prostate Specific Antigen 2.01 ng/mL (0.10-4.00)
== END ==
PROVIDERS: Family Provider Family Medicine; PCP Family Medicine; Referring Provider Urology; Visit Provider Urology
DX: Z12.5 Encounter for screening for malignant neoplasm of prostate (principal)
CPT/HCPCS: 36415; 84153

== ENCOUNTER → 2020-11-03 13:08 | Outpatient (CLI) | payer MEDICARE, OTHER, SELFPAY ==
[2020-11-03 16:21] LABS: COVID19 -Nasal RAPID Negative (Negative)
== END ==
PROVIDERS: Family Provider Family Medicine; PCP Family Medicine; Visit Provider Student in an Organized Health Care Education/Training Program
DX: Z20.822 Contact with and (suspected) exposure to COVID-19 (principal)
CPT/HCPCS: 87635; C9803

== ENCOUNTER 2020-11-05 10:33 | Day surgery (SDC) | payer MEDICARE, OTHER, SELFPAY ==
--- NOTE | 2020-11-04 19:18 | PM.PREOP ---
Pre-operative Note COVID-19 COVID-19 status: Negative Interval Note History & Physical reviewed/Exam performed by Physician: Yes Changes to H&P: No
--- NOTE | 2020-11-05 07:49 | P.OP_ITS ---
Operative Date/Time/Diagnoses Date of procedure: 11/05/20 Time of procedure: 11:45 Procedure & Clinicians Procedure: Preoperative diagnoses: 1. 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 2. Astigmatism which is to be corrected with a toric intraocular lens implant. 3. Hypertension. 4. High myopia 5. Glaucoma. Postoperative diagnoses: 1. Cataract removal with phacoemulsification with toric posterior chamber intraocular lens implant placed. Procedure: Phacoemulsification with posterior chamber toric intraocular lens implant. Surgeon: Araceli Hahn MD Complications: None Specimen: None Implant: [id number] [place] 070 Blood loss: None Anesthesia: Retrobulbar with monitored standby Description of procedure: Patient presents with a complaint of decreased vision due to cataract which is affecting activities of daily living both for driving and reading. He is a high myope which is is a toric intra-ocular lens implant with a distance target. The patient wants surgery to improve vision and astigmatism. He understands the extra risk of surgery during the COVID-19 epidemic and wishes to proceed. Due to his use of prostate medication he may need a [place] ring to decrease risk from floppy iris syndrome. However his pupil is very large preoperatively it was felt best to proceed without the iris ring. He has tested negative for COVID-19 virus within 72 hours of surgery. The patient was taken to the operating room and proparacaine drops placed. Indelible ink fernandez were placed at the 90 and 180 degree meridian. The patient was placed on the operating room table and given IV sedation. A retrobulbar block insert consisting of 6 cc of 2% xylocaine without epinephrine mixed half and half with 0.5% Marcaine with 1 cc of hyaluronidase added is placed between the medial and lateral 1/3 of the inferior orbital rim. The eye is manually massaged for 30 sec, prepped using Betadine solution, and draped in the usual sterile fashion. Temporal approach was made, a 1 mm side-port incision was made 90? from the proposed corneal wound. Phenylephrine 1.5% mixed with 1% xylocaine 0.2 cc was placed into the anterior chamber. Viscoat followed by Healon was then placed. A 2.6 mm clear incision with a 2.6 mm blade was placed at the 170 degree meridian. A 360 degree capsulorrhexis style capsulotomy was then performed with a cystitome needle on a Healon. Hydrodelineation and hydrodissection were performed. The phacoemulsification unit is introduced, and sculpting used to groove the central lens. It is then removed in chopping mode. Epi nucleus is removed with epinuclear mode and irrigation aspiration was used to remove the peripheral cortex. The posterior capsule is polished. The intraocular lens is selected, inspected, power confirmed, and placed in the posterior chamber at the desired meridian of 070. The pupil was not constricted. The wound was stromally hydrated and tested for leaks, there was none and it was left sutureless. Vigamox 0.1 cc was placed into the anterior chamber. Kenalog 0.2 cc was placed in the superior subconjunctival space. A drop of antibiotic and was placed and the eye was patched and shielded. The patient was stable and returned to the recovery room in excellent condition. Dictated by: Araceli Hahn MD Copy to: [facility] Same procedure as scheduled: Yes
[2020-11-05] MEDS: PROPARACAINE 0.5% OPHTH SOL 2 DROPS EYE-OP (11:26)
[2020-11-05] MEDS: CATARACT EYE COMPOUND (10 DROPS/SYRINGE) 3 DROPS EYE-OP (11:27)
[2020-11-05 11:28] VITALS: BP 146/80; PULSE 57; RESP 14; TEMP 36.3; O2SAT 100; BMI 28.3
[2020-11-05] MEDS: LIDOCAINE 2% 4 ML, BUPIVACAINE 0.5% (PF) 4 ML, HYALURONIDASE 150 UNIT INJ (12:58)
[2020-11-05] MEDS: TRIAMCINOLONE 50 MG/5 ML VIAL INJ (12:59)
[2020-11-05] MEDS: PHENYLEPHRINE/LIDOCAINE VIAL (OR) 0.2 ML EYE-OP (12:59)
[2020-11-05] MEDS: MOXIFLOXACIN INJ 4 MG/0.8 ML VIAL 0.5 MG EYE-OP (12:59)
[2020-11-05] MEDS: HYALURONATE SODIUM 10 MG/ML SYRINGE INJ (13:00)
[2020-11-05] MEDS: CHONDROIDTIN/SOD HYALURONATE 1.05 ML SYRINGE INTRAOCULA (13:00)
[2020-11-05] MEDS: BALANCED SALT IRRIG SOLN NO.2 500 ML, EPINEPHrine 1 MG IRR (13:00)
[2020-11-05] MEDS: ERYTHROMYCIN OPHTH 1 GM OINT 1 APPLIC EYE-RIGHT (13:01)
[2020-11-05 13:45] VITALS: BP 137/76; PULSE 59; RESP 16; TEMP 36.3; O2SAT 99
== END 2020-11-05 13:24 | disposition home or self-care (01) ==
LOC: OR 10:37
PROVIDERS: Family Provider Family Medicine; PCP Family Medicine; Referring Provider Ophthalmology; Visit Provider Ophthalmology
PROC: (CPT 66984; principal; 2020-11-05 11:45)
DX: H52.201 Unspecified astigmatism, right eye (principal); H44.20 Degenerative myopia, unspecified eye; H40.013 Open angle with borderline findings, low risk, bilateral; I10 Essential (primary) hypertension; H25.11 Age-related nuclear cataract, right eye
CPT/HCPCS: 66984; J0171; J2704; J3301; J3470; V2787

== ENCOUNTER → 2020-11-17 12:57 | Outpatient (CLI) | payer MEDICARE, OTHER, SELFPAY ==
[2020-11-17 16:56] LABS: COVID19 -Nasal RAPID Negative (Negative)
== END ==
PROVIDERS: Family Provider Family Medicine; PCP Family Medicine; Visit Provider Student in an Organized Health Care Education/Training Program
DX: Z01.812 Encounter for preprocedural laboratory examination (principal); Z20.822 Contact with and (suspected) exposure to COVID-19
CPT/HCPCS: 87635; C9803

== ENCOUNTER → 2020-11-18 13:39 | Outpatient (CLI) | payer MEDICARE, OTHER, SELFPAY ==
--- NOTE | 2020-11-18 13:42 | DI.RAD.S_ITS ---
PROCEDURE: XR CERVICAL SPINE 2V OR 3V INDICATIONS: vertigo TECHNIQUE: 3 view(s) of the cervical spine were acquired. COMPARISON: None. FINDINGS: Bones: No fractures or dislocations to the T1 level. The lateral masses of C1 appear intact on the odontoid view. No suspicious bony lesions. Note is made of a minimal degree of degenerative disc disease from C2 through C5 but at C5-6 and C6-7 there is moderately severe degenerative disc disease and facet osteoarthritis. This is most pronounced at C5-6. Soft tissues: No prevertebral soft tissue swelling. IMPRESSION: Moderately severe C5-6 and C6-7 degenerative changes to the degree that spinal and foraminal stenosis would be suspected to be significant at these 2 levels. Dictated by: Aly Coffman M.D. on 11/18/2020 at 14:51 Approved by: Aly Coffman M.D. on 11/18/2020 at 14:52
== END ==
PROVIDERS: Family Provider Family Medicine; PCP Family Medicine; Referring Provider Family Medicine; Visit Provider Family Medicine
DX: R42 Dizziness and giddiness (principal); M47.812 Spondylosis without myelopathy or radiculopathy, cervical region
CPT/HCPCS: 72040

== ENCOUNTER 2020-11-19 08:31 | Day surgery (SDC) | payer MEDICARE, OTHER, SELFPAY ==
--- NOTE | 2020-11-18 17:40 | PM.PREOP ---
Pre-operative Note COVID-19 COVID-19 status: Negative Interval Note History & Physical reviewed/Exam performed by Physician: Yes Changes to H&P: No
--- NOTE | 2020-11-18 17:42 | PM.OP.1 ---
Operative Date/Time/Diagnoses Date of procedure: 11/19/20 Time of procedure: 09:45 Procedure & Clinicians Procedure: Preoperative diagnoses: 1. Left significant Nuclear sclerotic cataract. 2. Astigmatism which is to be corrected with a toric intraocular lens implant. 3. 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 4. Prostatic hypertrophy. 5. Hypertension. 6. Glaucoma on latanoprost. 7. High myopia. Postoperative diagnoses: 1. Cataract removal with phacoemulsification with toric posterior chamber intraocular lens implant placed. Procedure: Phacoemulsification with posterior chamber toric intraocular lens implant. Surgeon: Araceli Hahn MD Complications: None Specimen: None Implant: [id number] [place] 120 Blood loss: None Anesthesia: Retrobulbar with monitored standby Description of procedure: Patient presents with a complaint of decreased vision due to cataract which is affecting activities of daily living especially night driving. The patient wants surgery to improve vision and astigmatism. He is a high myope and understands he will still need reading glasses. He understands the extra risk of surgery during the COVID-19 epidemic and wishes to proceed. He tested active virus negative prior to the procedure. He is on glaucoma drops his history of steroid response so his medications and intraoperative Kenalog are going to be adjusted. He is at risk for floppy iris syndrome due to his medication. The patient was taken to the operating room and proparacaine drops placed. Indelible ink fernandez were placed at the 90 and 180 degree meridian. The patient was placed on the operating room table and given IV sedation. A retrobulbar block insert consisting of 6 cc of 2% xylocaine without epinephrine mixed half and half with 0.5% Marcaine with 1 cc of hyaluronidase added is placed between the medial and lateral 1/3 of the inferior orbital rim. The eye is manually massaged for 30 sec, prepped using Betadine solution, and draped in the usual sterile fashion. Temporal approach was made, a 1 mm side-port incision was made 90? from the proposed corneal wound. Phenylephrine 1.5% mixed with 1% xylocaine 0.2 cc was placed into the anterior chamber. Viscoat followed by Healon was then placed. A 2.6 mm clear incision with a 2.6 mm blade was placed at the 170 degree meridian of 120?. A 360 degree capsulorrhexis style capsulotomy was then performed with a cystitome needle on a [employer]. Hydrodelineation and hydrodissection were performed. The phacoemulsification unit is introduced, and sculpting used to groove the central lens. It is then removed in chopping mode. Epi nucleus is removed with epinuclear mode and irrigation aspiration was used to remove the peripheral cortex. The posterior capsule is polished. The intraocular lens is selected, inspected, power confirmed, and placed in the posterior chamber at the desired meridian. The pupil was not constricted. The wound was stromally hydrated and tested for leaks, there was none and it was left sutureless. Vigamox 0.1 cc was placed into the anterior chamber. Kenalog 0.2 cc was placed in the superior subconjunctival space. A drop of antibiotic and was placed and the eye was patched and shielded. The patient was stable and returned to the recovery room in excellent condition. There was no floppy iris identified during this procedure. Dictated by: Araceli Hahn MD Copy to: [facility] Same procedure as scheduled: Yes
[2020-11-19] MEDS: CATARACT EYE COMPOUND (10 DROPS/SYRINGE) 3 DROPS EYE-OP (08:53)
[2020-11-19 09:04] VITALS: BMI 28.3
--- NOTE | 2020-11-19 09:13 | SUR.PREOP ---
085=1 late entry Proparacaine eye drop as ordered/confirmed - would not scan or all 'document'
--- NOTE | 2020-11-19 09:26 | SUR.OPER ---
Supine on eye stretcher, head on extension cradle secured with tape. Arms tucked at sides with blanket. Pillow under knees.
--- NOTE | 2020-11-19 09:28 | SUR.OPER ---
Supine on eye stretcher, head on extension cradle secured with tape. Arms tucked at sides with blanket. Pillow under knees.
[2020-11-19] MEDS: PHENYLEPHRINE/LIDOCAINE VIAL (OR) 0.2 ML EYE-OP (10:08)
[2020-11-19] MEDS: TRIAMCINOLONE 50 MG/5 ML VIAL INJ (10:08)
[2020-11-19] MEDS: MOXIFLOXACIN INJ 4 MG/0.8 ML VIAL 0.5 MG EYE-OP (10:09)
[2020-11-19] MEDS: CHONDROIDTIN/SOD HYALURONATE 1.05 ML SYRINGE INTRAOCULA (10:09)
[2020-11-19] MEDS: HYALURONATE SODIUM 10 MG/ML SYRINGE INJ (10:09)
[2020-11-19] MEDS: LIDOCAINE 2% 4 ML, BUPIVACAINE 0.5% (PF) 4 ML, HYALURONIDASE 150 UNIT INJ (10:10)
[2020-11-19] MEDS: BALANCED SALT IRRIG SOLN NO.2 500 ML, EPINEPHrine 1 MG IRR (10:11)
[2020-11-19] MEDS: ERYTHROMYCIN OPHTH 1 GM OINT 1 APPLIC EYE-LEFT (10:12)
[2020-11-19 10:50] VITALS: BP 130/74; PULSE 53; RESP 16; TEMP 36.8; O2SAT 99
== END 2020-11-19 11:01 | disposition home or self-care (01) ==
LOC: OR 08:32
PROVIDERS: Family Provider Family Medicine; PCP Family Medicine; Referring Provider Ophthalmology; Visit Provider Ophthalmology
PROC: (CPT 66984; principal; 2020-11-19 09:45)
DX: H25.12 Age-related nuclear cataract, left eye (principal); H52.202 Unspecified astigmatism, left eye; H40.9 Unspecified glaucoma; H44.20 Degenerative myopia, unspecified eye; N40.0 Benign prostatic hyperplasia without lower urinary tract symptoms; I10 Essential (primary) hypertension; R42 Dizziness and giddiness
CPT/HCPCS: 66984; J0171; J2704; J3301; J3470; V2787

== ENCOUNTER → 2020-11-26 19:01 | Outpatient (CLI) | payer MEDICARE, OTHER, SELFPAY ==
--- NOTE | 2020-11-26 19:03 | DI.MRI.S_ITS ---
PROCEDURE: MR CERVICAL SPINE WO CON INDICATIONS: Degenerative changes to C5-6, C6-7 TECHNIQUE: Noncontrast sagittal T1 spin echo and T2 fast spin echo, sagittal STIR, foraminal oblique sagittal T2 fast spin echo, and axial gradient echo or T2 fast spin echo through the cervical spine. COMPARISON: [facility], CT, CT CERVICAL SPINE WO CON, 08/15/2019, 20:57. [facility], CR, XR CERVICAL SPINE 2V OR 3V, 11/18/2020, 13:41. FINDINGS: Image quality: Excellent. Alignment and Curvature: Loss of normal cervical lordosis is present. Bone Marrow: Marrow demonstrates normal overall signal. There is mild reactive signal within the endplates adjacent to the C2-C3, C3-C4, C4-C5, C5-C6, C6-C7, and C7-T1 intervertebral discs. Spinal Cord: Visualized spinal cord has normal size and signal. No cerebellar tonsillar herniation. Paraspinous Soft Tissues: No paravertebral masses. Prevertebral soft tissues are normal in thickness. C2-C3: Congenital canal stenosis. Mild disc height loss and desiccation. Mild diffuse disc bulge. Mild facet and uncovertebral hypertrophy bilaterally. Moderate canal stenosis. Moderate bilateral foraminal stenosis. C3-C4: Congenital canal stenosis. Mild disc height loss and desiccation. Mild diffuse disc bulge. Mild left greater than right facet and uncovertebral hypertrophy. Moderate to severe canal stenosis. Moderate right and severe left foraminal stenosis. Left C4 nerve root compression. C4-C5: Congenital canal stenosis. Mild disc height loss and desiccation. Mild diffuse disc bulge. Mild facet and uncovertebral hypertrophy bilaterally. Moderate to severe canal stenosis. Minimal anterior cord flattening. Moderate right and severe left foraminal stenosis. Left C5 nerve root compression. C5-C6: Mild disc height loss and desiccation. Mild diffuse disc bulge with superimposed right far lateral protrusion/osteophyte. Mild facet and uncovertebral hypertrophy. Congenital canal stenosis. Moderate canal stenosis. Moderate to severe bilateral foraminal stenosis. Mild C6 nerve root compression bilaterally. C6-C7: Congenital canal stenosis. Moderate disc height loss and desiccation. Mild diffuse disc bulge/osteophyte. Mild facet and uncovertebral hypertrophy bilaterally. Moderate canal stenosis. Severe right and moderate to severe left foraminal stenosis. Right greater than left C7 nerve root compression. C7-T1: Congenital canal stenosis. Moderate disc height loss and desiccation. Mild diffuse disc bulge with superimposed small central protrusion. Mild facet and uncovertebral hypertrophy bilaterally. Moderate canal stenosis. Severe right and moderate left foraminal stenosis. Right C8 nerve root compression. IMPRESSION: 1. Diffuse congenital canal stenosis with superimposed disc and facet disease, as well as uncovertebral hypertrophy. 2. Multilevel canal stenoses, worst at C4-C5, where there is mild cord flattening. 3. Multilevel foraminal stenoses, worst at C3-C4, C4-C5, C5-C6, C6-C7, and C7-T1, where there is associated intraforaminal nerve root compression. Recommend correlation with clinical symptoms to ascertain relevance of these findings. Dictated by: Faustino Samano M.D. on 11/27/2020 at 8:40 Approved by: Faustino Samano M.D. on 11/27/2020 at 8:45
== END ==
PROVIDERS: Family Provider Family Medicine; PCP Family Medicine; Referring Provider Family Medicine; Visit Provider Family Medicine
DX: M47.812 Spondylosis without myelopathy or radiculopathy, cervical region (principal); M48.02 Spinal stenosis, cervical region
CPT/HCPCS: 72141

== ENCOUNTER → 2021-09-08 16:22 | Outpatient (CLI) | payer MEDICARE, OTHER, SELFPAY ==
[2021-09-08 17:48] LABS: Alanine Aminotransferase 19 IU/L (<50); Albumin 4.9 g/dL (3.5-5.0); Albumin Globulin Ratio 1.6 (1.0-2.8); Alkaline Phosphatase 32 U/L (38-126); Aspartate Aminotransferase 22 IU/L (17-59); BUN Creatinine Ratio 17.3 (6-22); Bilirubin Total 0.5 mg/dL (0.2-1.3); Blood Urea Nitrogen 14 mg/dL (9-20); Calcium 9.8 mg/dL (8.4-10.2); Carbon Dioxide 30 mmol/L (22-32); Chloride 100 mmol/L (98-107); Estimated Glomerular Filt Rate > 60.0 mL/min (>60); Globulin 3.1 g/dL (1.7-4.1); Glucose 95 mg/dL (80-110); HEMOLYSIS < 15 (0-50); Potassium 4.8 mmol/L (3.4-5.1); Sodium 137 mmol/L (137-145)
[2021-09-10 15:48] LABS: Prostate Specific Antigen 1.36 ng/mL (0.10-4.00)
== END ==
PROVIDERS: Family Provider Family Medicine; PCP Family Medicine; Referring Provider Family Medicine; Visit Provider Family Medicine
DX: N40.0 Benign prostatic hyperplasia without lower urinary tract symptoms (principal); I10 Essential (primary) hypertension
CPT/HCPCS: 36415; 80053; 84153

== ENCOUNTER → 2022-01-21 08:45 | Outpatient (CLI) | payer MEDICARE, OTHER, SELFPAY ==
[2022-01-21 09:45] LABS: Add Manual Diff / Slide Review NO; Basophils Absolute Auto 0 /uL (0-100); Basophils Percent Auto 0.7 % (0-2); Eosinophils Absolute Auto 100 /uL (0-450); Eosinophils Percent Auto 3.2 % (2-4); Hematocrit 41.3 % (41-53); Hemoglobin 13.9 g/dL (13.5-17.5); Lymphocytes Absolute Auto 1100 /uL (1100-4500); Lymphocytes Percent Auto 26.9 % (25-40); Mean Corpuscular HGB Conc 33.6 % (30-36); Mean Corpuscular Hemoglobin 31.5 PG (26-34); Mean Corpuscular Volume 93.6 fL (80-100); Monocytes Absolute Auto 400 /uL (0-900); Monocytes Percent Auto 9.5 % (3-14); Neutrophils Absolute Auto 2400 /uL (1500-7000); Neutrophils Percent Auto 59.7 % (50-75); Platelet Count 172 X10^3/uL (150-400); Red Blood Cell Count 4.42 X10^6/uL (4.5-5.9); Red Cell Distribution Width 12.8 % (11.6-14.8); White Blood Cell Count 4.1 X10^3/uL (4.5-11.0)
[2022-01-21 11:09] LABS: Alanine Aminotransferase 17 IU/L (<50); Albumin 4.5 g/dL (3.5-5.0); Albumin Globulin Ratio 1.6 (1.0-2.8); Alkaline Phosphatase 33 U/L (38-126); Aspartate Aminotransferase 22 IU/L (17-59); BUN Creatinine Ratio 17.6 (6-22); Bilirubin Total 0.7 mg/dL (0.2-1.3); Blood Urea Nitrogen 13 mg/dL (9-20); Calcium 9.1 mg/dL (8.4-10.2); Carbon Dioxide 27 mmol/L (22-32); Chloride 101 mmol/L (98-107); Cholesterol 167 mg/dL (140-199); Estimated Glomerular Filt Rate > 60 mL/min (>60); Globulin 2.8 g/dL (1.7-4.1); Glucose 101 mg/dL (80-110); HDL Cholesterol 75 mg/dL (40-60); HEMOLYSIS < 15 (0-50); LDL Cholesterol Calculated 78 mg/dL (<100); Sodium 138 mmol/L (137-145); Total Protein 7.3 g/dL (6.3-8.2); Triglycerides 68 mg/dL (35-150)
[2022-01-21 11:50] LABS: Creatinine Urine Random 79.8 mg/dL
[2022-01-21 11:54] LABS: Microalbumi Creatinin Ratio Ur 7.5 ug/mg CR (<30); Microalbumin Urine Random 0.6 mg/dL (0-1.6)
== END ==
PROVIDERS: Family Provider Family Medicine; PCP Family Medicine; Referring Provider Physician Assistant; Visit Provider Physician Assistant
DX: I10 Essential (primary) hypertension (principal); I49.3 Ventricular premature depolarization
CPT/HCPCS: 36415; 80053; 80061; 82043; 82570; 84443; 85025

== ENCOUNTER → 2022-10-28 14:48 | Outpatient (CLI) | payer MEDICARE, OTHER, SELFPAY ==
[2022-10-28 15:26] LABS: Add Manual Diff / Slide Review NO; Basophils Absolute Auto 0 /uL (0-100); Basophils Percent Auto 0.5 % (0-2); Eosinophils Absolute Auto 200 /uL (0-450); Eosinophils Percent Auto 2.7 % (2-4); Hematocrit 40.8 % (41-53); Lymphocytes Absolute Auto 1700 /uL (1100-4500); Lymphocytes Percent Auto 27.1 % (25-40); Mean Corpuscular HGB Conc 34.3 % (30-36); Mean Corpuscular Hemoglobin 31.6 PG (26-34); Monocytes Absolute Auto 500 /uL (0-900); Monocytes Percent Auto 7.8 % (3-14); Neutrophils Absolute Auto 3900 /uL (1500-7000); Neutrophils Percent Auto 61.9 % (50-75); Platelet Count 205 X10^3/uL (150-400); Red Blood Cell Count 4.43 X10^6/uL (4.5-5.9); Red Cell Distribution Width 12.6 % (11.6-14.8); White Blood Cell Count 6.4 X10^3/uL (4.5-11.0)
[2022-10-28 15:51] LABS: Alanine Aminotransferase 23 IU/L (<50); Albumin 4.3 g/dL (3.5-5.0); Albumin Globulin Ratio 1.3 (1.0-2.8); Alkaline Phosphatase 31 U/L (38-126); Aspartate Aminotransferase 22 IU/L (17-59); BUN Creatinine Ratio 18.6 (6-22); Bilirubin Total 0.5 mg/dL (0.2-1.3); Blood Urea Nitrogen 16 mg/dL (9-20); Calcium 9.3 mg/dL (8.4-10.2); Carbon Dioxide 32 mmol/L (22-32); Chloride 99 mmol/L (98-107); Estimated Glomerular Filt Rate > 60 mL/min (>60); Globulin 3.2 g/dL (1.7-4.1); Glucose 96 mg/dL (80-110); HEMOLYSIS < 15 (0-50); Potassium 4.1 mmol/L (3.4-5.1); Sodium 139 mmol/L (137-145); Total Protein 7.5 g/dL (6.3-8.2)
[2022-10-28 16:18] LABS: Prostate Specific Antigen Scrn 1.35 ng/mL (0.1-4.0)
== END ==
PROVIDERS: Family Provider Family Medicine; PCP Family Medicine; Referring Provider Family Medicine; Visit Provider Family Medicine
DX: R10.9 Unspecified abdominal pain (principal); Z12.5 Encounter for screening for malignant neoplasm of prostate
CPT/HCPCS: 36415; 80053; 85025; G0103

== ENCOUNTER → 2022-11-09 09:53 | Outpatient (CLI) | payer MEDICARE, OTHER, SELFPAY ==
--- NOTE | 2022-11-09 09:54 | DI.US.S_ITS ---
PROCEDURE: US ABDOMEN LIMITED INDICATIONS: Possible RLQ hernia TECHNIQUE: Real-time focused scanning was performed of the abdomen, with image documentation. Color Doppler was also utilized. COMPARISON: None. FINDINGS: Scan is performed at the area of clinical concern within the right lower quadrant. At the site of clinical concern, there is a hypoechoic lobulated focus, without abnormal vascularity that measures 3 x 1 x 2.2 cm. No associated wall defect is seen. IMPRESSION: 3 cm hypoechoic masslike focus seen at the area of clinical concern. Differential diagnosis includes calcification, abdominal wall mass, and hernia (although no abdominal wall defect is seen). Please now consider a dedicated CT of the abdomen and pelvis with at least IV contrast for further evaluation. Dictated by: Fernando Alarcon M.D. on 11/09/2022 at 11:10 Approved by: Fernando Alarcon M.D. on 11/09/2022 at 11:12
== END ==
PROVIDERS: Family Provider Family Medicine; PCP Family Medicine; Referring Provider Family Medicine; Visit Provider Family Medicine
DX: R19.03 Right lower quadrant abdominal swelling, mass and lump (principal)
CPT/HCPCS: 76705

== ENCOUNTER → 2022-11-11 09:01 | Outpatient (CLI) | payer MEDICARE, OTHER, SELFPAY ==
--- NOTE | 2022-11-11 09:01 | DI.CT.S_ITS ---
PROCEDURE: CT ABDOMEN PELVIS W CON INDICATIONS: mass seen on US TECHNIQUE: After the administration of oral and intravenous contrast, axial sections were acquired from the lung bases to the pubic symphysis. Coronal and sagittal reformats were performed. For radiation dose reduction, the following was used: automated exposure control, adjustment of mA and/or kV according to patient size. COMPARISON:[facility], , US ABDOMEN LIMITED, 11/09/2022, 10:01. FINDINGS: Image quality: Excellent. Lung bases: Unremarkable. Heart: No significant findings. ABDOMEN: Liver: Unremarkable. Gallbladder: Unremarkable. Biliary ducts: Unremarkable. Pancreas: Unremarkable. Spleen: Unremarkable. Adrenal Glands: Unremarkable. Kidneys and Ureters: Unremarkable. Stomach and Bowel: Stomach, small bowel loops, and colon are unremarkable. The appendix is thin walled and gas filled. There are scattered sigmoid diverticula. No evidence for diverticulitis. Peritoneum: No abnormal intraperitoneal fluid. No free air. Ventral Wall: No hernia. Abdominal Nodes: No retroperitoneal or mesenteric adenopathy by size criteria. Vessels: Aorta and inferior vena cava are normal in size. PELVIS: Pelvic Organs: Unremarkable. Bladder: Unremarkable. Pelvic Nodes: No enlarged lymph nodes. Miscellaneous: No right inguinal hernia. No discrete mass visualized within the right groin. Trace fluid or low-density soft tissue is noted within the right inguinal canal. There is a moderate-sized left fat containing inguinal hernia. Bones: Unremarkable. IMPRESSION: 1. No discrete mass visualized in the area of interest within the right groin. A small amount of fluid or low-density soft tissue is present in this region which may represent scar. It is unclear if this is the 3 cm hypoechoic region visualized on the comparison ultrasound from November 09, 2022. 2. Moderate left fat containing inguinal hernia. 3. No acute intra-abdominal findings. Diverticulosis. No acute diverticulitis. Normal appendix. Dictated by: Rhonda Bethea M.D. on 11/11/2022 at 11:29 Approved by: Rhonda Bethea M.D. on 11/11/2022 at 11:36
== END ==
PROVIDERS: Family Provider Family Medicine; PCP Family Medicine; Referring Provider Family Medicine; Visit Provider Family Medicine
DX: R19.00 Intra-abdominal and pelvic swelling, mass and lump, unspecified site (principal); K40.90 Unilateral inguinal hernia, without obstruction or gangrene, not specified as recurrent; K57.30 Diverticulosis of large intestine without perforation or abscess without bleeding
CPT/HCPCS: 74177; Q9967

== ENCOUNTER 2023-01-13 08:21 | Day surgery (SDC) | payer MEDICARE, OTHER, SELFPAY ==
[2023-01-13 08:38] VITALS: BP 151/76; PULSE 60; RESP 17; TEMP 36.3; O2SAT 100; BMI 28.0
[2023-01-13] MEDS: LACTATED RINGERS 1,000 ML 100 ML IV (08:44)
--- NOTE | 2023-01-13 09:21 | P.HP_ITS ---
History of Present Illness History of Present Illness Date Patient Seen: 01/13/23 Time Patient Seen: 09:21 Chief complaint: Dx Colonoscopy Narrative: Ramsey is a 72-year-old man had change bowel function recently, predominantly loose bowel. He is 9 years out from his last colonoscopy. [facility] Medical History BPH (benign prostatic hyperplasia) Cataracts, bilateral (~2013) Chickenpox (~1955) Colitis (~1959) Elevated PSA (~2012) Essential hypertension (~2004) Glaucoma (~2014) Hayfever (~1974) Hearing loss (~2012) Low testosterone (~2004) Measles (~1960) Mumps (~1954) Obstructive sleep apnea of adult Rubella (~1963) Skin cancer (~2013) Surgical History Anesthesia H/O right inguinal hernia repair History of prostate surgery (~2020) History of tonsillectomy (~1956) S/P Mohs surgery for basal cell carcinoma (~2013) S/P right rotator cuff repair (~2014) Status post laser cataract surgery of both eyes Family History Father Coronary artery disease Hypertension Heart attack Brother Coronary artery disease H/O heart bypass surgery Mother Coronary artery disease Diabetes mellitus COPD (chronic obstructive pulmonary disease) Congestive heart failure Grandfather Heart attack Grandmother Uterine cancer Daughter Guillain Villanueva? syndrome Daughter No problems noted. Son No problems noted. Social History marital status: household members: spouse lives independently: Yes occupational status: other (Retired) Smoking Status: Former smoker alcohol intake: current substance use type: does not use Meds Home Medications and Allergies Home Medications Medication Instructions Recorded Confirmed Type latanoprost 0.005 % eye drops 1 drop EYE-BOTH QPM #7.5 mL 08/22/18 01/13/23 Rx cholecalciferol (vitamin D3) 50 50 mcg PO Q OTHER DAY 11/19/20 01/13/23 History mcg (2,000 unit) capsule (Vitamin D3) timolol maleate 0.5 % eye drops 1 drp EYE-BOTH 2XD 12/08/21 01/13/23 History losartan 100 mg tablet 100 mg PO QAM #90 tabs 09/27/22 01/13/23 Rx amlodipine 5 mg tablet 5 mg PO DAILY #90 tabs 11/10/22 01/13/23 Rx sildenafil (pulm.hypertension) 20 20 mg PO DAILY PRN Erectile 12/07/22 01/13/23 Rx mg tablet Dysfunction #30 tabs Allergies Allergy/AdvReac Type Severity Reaction Status Date / Time No Known Drug Allergies Allergy Verified 12/08/22 11:10 Exam Vital Signs (past 8 hours): - 01/13/23 08:38 Temperature 97.3 F L Pulse Rate 60 Respiratory Rate 17 Blood Pressure 151/76 H Pulse Oximetry 100 Const General: healthy appearing Resp Effort & Inspection: normal respiratory effort Assessment & Plan Assessment and plan (1) Change in bowel habits: Status: Acute Plan We reviewed the risks and benefits of colonoscopy for a change in bowel habits and he would like proceed
--- NOTE | 2023-01-13 09:53 | PM.OP.COLON ---
Operative Date/Time/Diagnoses Date of procedure: 01/13/23 Time of procedure: 09:53 Pre-op diagnosis: Change in bowel habits Post-op diagnosis: same Procedure & Clinicians Study performed: Colonoscopy Same procedure as scheduled: Yes Surgeon: Evan Cross Procedure Notes Procedure in detail: Surgeon: Evan Cross MD Anesthesia: Lucio Melara CRNA Procedure: The patient was brought to the endoscopy suite, placed in left lateral decubitus position. The patient was connected to monitoring devices. A time-out was performed. Sedation was administered. Once the patient was adequately sedated, a digital rectal exam was performed and was normal. The scope was then inserted and advanced to the cecum where the appendiceal orifice was identified and photographed. The scope was then slowly withdrawn over greater than 6 minutes. The mucosa was thoroughly inspected. There were rare scattered diverticula. No polyps were found. The scope was retroflexed in the rectum. No other abnormalities were found. The scope was straightened and removed. The patient was awakened and brought to recovery. Scope withdrawal time: 15 minutes Sedation time: 20 minutes EBL: 0 Findings: Rare diverticula Post-procedure Recommendations: Colonoscopy in 10 years Disposition: PACU
[2023-01-13 09:54] VITALS: BP 98/51; PULSE 59; RESP 18; O2SAT 96
[2023-01-13 10:00] VITALS: BP 96/52; PULSE 63; RESP 16; O2SAT 96
[2023-01-13 10:04] VITALS: BP 113/64; PULSE 62; RESP 16; O2SAT 99
[2023-01-13 10:09] VITALS: PULSE 69; RESP 16; TEMP 36.1; O2SAT 97
[2023-01-13 10:13] VITALS: PULSE 126; RESP 16; TEMP 36.1; O2SAT 98
== END 2023-01-13 10:37 | disposition home or self-care (01) ==
PROVIDERS: Family Provider Family Medicine; PCP Family Medicine; Referring Provider Surgery; Visit Provider Surgery
PROC: 0DJD8ZZ Inspection of Lower Intestinal Tract, Via Natural or Artificial Opening Endoscopic (ICD-10-PCS; CPT 45378; principal; 2023-01-13 09:30)
DX: R19.4 Change in bowel habit (principal); K57.30 Diverticulosis of large intestine without perforation or abscess without bleeding
CPT/HCPCS: 45378; J2704

== ENCOUNTER 2023-01-25 06:44 | Day surgery (SDC) | payer MEDICARE, OTHER, SELFPAY ==
[2023-01-14 09:30] VITALS: BMI 27.6
[2023-01-25 07:13] VITALS: BP 148/73; PULSE 54; RESP 16; TEMP 36.2; O2SAT 97; BMI 27.6
[2023-01-25] MEDS: LACTATED RINGERS 1,000 ML 84 ML IV ×2 (07:15→08:54)
--- NOTE | 2023-01-25 07:17 | SUR.OPER ---
Supine on padded OR bed, head on pillow, arms secured on padded arm boards at <90 degrees abduction, legs uncrossed, safety belt at thigh, tape over blanket over lower legs.
--- NOTE | 2023-01-25 07:38 | P.HP_ITS ---
History of Present Illness History of Present Illness Date Patient Seen: 01/25/23 Time Patient Seen: 07:46 Chief complaint: Open L Inguinal Hernia Repair Narrative: Ramsey is here for his left inguinal hernia repair with mesh. See prior office notes for details. He has had his left groin pain several months now. He had his colonoscopy last month which was normal. [facility] Medical History (Updated 01/13/23 @ 09:22 by Evan Cross MD) BPH (benign prostatic hyperplasia) Cataracts, bilateral (~2013) Chickenpox (~1955) Colitis (~1959) Elevated PSA (~2012) Essential hypertension (~2004) Glaucoma (~2014) Hayfever (~1974) Hearing loss (~2012) Low testosterone (~2004) Measles (~1960) Mumps (~1954) Obstructive sleep apnea of adult Rubella (~1963) Skin cancer (~2013) Surgical History (Updated 01/14/23 @ 09:54 by Felipa Mccord RN) Anesthesia H/O right inguinal hernia repair History of prostate surgery (~2020) History of tonsillectomy (~1956) Hx of colonoscopy (01/13/23) S/P Mohs surgery for basal cell carcinoma (~2013) S/P right rotator cuff repair (~2014) Status post laser cataract surgery of both eyes Family History Father Coronary artery disease Hypertension Heart attack Brother Coronary artery disease H/O heart bypass surgery Mother Coronary artery disease Diabetes mellitus COPD (chronic obstructive pulmonary disease) Congestive heart failure Grandfather Heart attack Grandmother Uterine cancer Daughter Guillain Villanueva? syndrome Daughter No problems noted. Son No problems noted. Social History marital status: household members: spouse lives independently: Yes occupational status: other (Retired) Smoking Status: Former smoker alcohol intake: current substance use type: does not use Meds Home Medications and Allergies Home Medications Medication Instructions Recorded Confirmed Type latanoprost 0.005 % eye drops 1 drop EYE-BOTH QPM #7.5 mL 08/22/18 01/25/23 Rx cholecalciferol (vitamin D3) 50 50 mcg PO Q OTHER DAY 11/19/20 01/25/23 History mcg (2,000 unit) capsule (Vitamin D3) timolol maleate 0.5 % eye drops 1 drp EYE-BOTH 2XD 12/08/21 01/25/23 History losartan 100 mg tablet 100 mg PO QAM #90 tabs 09/27/22 01/25/23 Rx amlodipine 5 mg tablet 5 mg PO DAILY #90 tabs 11/10/22 01/25/23 Rx sildenafil (pulm.hypertension) 20 20 mg PO DAILY PRN Erectile 12/07/22 01/25/23 Rx mg tablet Dysfunction #30 tabs Allergies Allergy/AdvReac Type Severity Reaction Status Date / Time No Known Drug Allergies Allergy Verified 12/08/22 11:10 Exam Vital Signs (past 8 hours): - 01/25/23 07:13 Temperature 97.1 F L Pulse Rate 54 L Respiratory Rate 16 Blood Pressure 148/73 H Pulse Oximetry 97 Oxygen Delivery Method Room Air Oxygen Delivery Method Room Air Const General: healthy appearing and No in distress Resp Effort & Inspection: normal respiratory effort Assessment & Plan Assessment and plan (1) Left inguinal hernia: Status: Acute Plan 72 year old man with a symptomatic left inguinal hernia here for an open left inguinal hernia repair with mesh. Reviewed the risks and benefits of a left inguinal hernia repair with mesh and he would like to proceed.
[2023-01-25] MEDS: CEFAZOLIN 2 GM/100 ML PREMIX 100 ML IV (07:55)
[2023-01-25] MEDS: BUPIVACAINE 0.5% (PF) 10 ML VIAL INJ (08:05)
[2023-01-25] MEDS: EPINEPHrine 1 MG/ML 0.15 MG IM (08:05)
--- NOTE | 2023-01-25 09:01 | P.OP_ITS ---
Operative Date/Time/Diagnoses Date of procedure: 01/25/23 Time of procedure: 09:01 Pre-op diagnosis: Left inguinal hernia Post-op diagnosis: same Procedure & Clinicians Procedure: Open left inguinal hernia repair with mesh Same procedure as scheduled: Yes Surgeon: Evan Cross Organization Development Consultant: Josr Dacosta Anesthesia Type: General Operative Notes Procedure in detail: Preoperative antibiotic was administered. The patient was brought to the o perating room and placed on the table in supine position general anesthesia was induced. The left groin was prepped and draped in the normal fashion and a time-out was performed. Roughly 10 mL of local anesthetic were injected into the skin and subcutaneous adipose tissue over the left groin. A 6 cm incision was made over the left inguinal canal. Dissection was carried down through the subcutaneous adipose tissue. A bridging vein was cauterized. We exposed the external oblique aponeurosis in the direction of the fibers. Additional local was injected deep to the aponeurosis. A 15 blade scalpel was used to diana the external oblique aponeurosis over what appeared to be the left inguinal canal. After seeing bulky muscle fibers we quickly realized the external oblique incision was too high medial and closed it with a running 3-0 Vicryl. We then recreated the incision through the external oblique inferiorly and laterally which landed us right over the inguinal canal. Metzenbaum scissors were used to carefully open the aponeurosis in the direction of the fibers taking care not to injure the underlying ilioinguinal nerve which was well seen and protected. We completely exposed the inguinal canal. The cord was dissected free from the inguinal ligament and floor of the inguinal canal and the external oblique aponeurosis was dissected off of the internal oblique taking care not to injure the hypogastric nerve. We encircled the cord with a Alejandro drain for retraction. An indirect hernia was found along with a cord lipoma. The cord lipoma was amputated and discarded. The hernia sac was dissected off the cord structures and reduced into the abdomen. We placed a polypropylene mesh over the inguinal canal floor. The mesh was secured with multiple interrupted 3-0 Prolene sutures to the pubic tubercle and shelving edge of the inguinal ligament as well as to the conjoint tendon medially. We overlapped the tails to recreate an internal ring and secured the medial tail to the inguinal ligament with additional sutures. We injected some more local into the fatty tissue in the inguinal canal and cord. Finally, we removed the [place] drain and closed the external oblique fascia with a running 3-0 Vicryl suture. Skin was closed with interrupted 3-0 Vicryl dermal sutures and a running 4 Monocryl subcuticular stitch. EBL 5 mL The patient was awakened and brought to recovery room. Josr STALEY provided assistance with exposure, retraction and closure of incisions. Post-operative Condition: stable Disposition: PACU
[2023-01-25 09:12] VITALS: BP 114/63; PULSE 61; RESP 10; TEMP 36.2; O2SAT 97
[2023-01-25 09:17] VITALS: BP 122/66; PULSE 62; RESP 11; TEMP 36.2; O2SAT 95
[2023-01-25 09:22] VITALS: BP 132/68; PULSE 75; RESP 12; TEMP 36.2; O2SAT 99
[2023-01-25 09:27] VITALS: BP 136/77; PULSE 65; RESP 11; TEMP 36.2; O2SAT 97
[2023-01-25 09:32] VITALS: BP 132/74; PULSE 62; RESP 12; TEMP 36.1; O2SAT 97
== END 2023-01-25 09:59 | disposition home or self-care (01) ==
PROVIDERS: Family Provider Family Medicine; PCP Internal Medicine; Referring Provider Surgery; Visit Provider Surgery
PROC: (CPT 49505; principal; 2023-01-25 07:45)
DX: K40.90 Unilateral inguinal hernia, without obstruction or gangrene, not specified as recurrent (principal); I10 Essential (primary) hypertension; I25.10 Atherosclerotic heart disease of native coronary artery without angina pectoris; Z87.891 Personal history of nicotine dependence
CPT/HCPCS: 49505; J0171; J0690; J1170; J2405; J2704; J3010

== ENCOUNTER → 2023-06-14 08:56 | Outpatient (CLI) | payer MEDICARE, OTHER, SELFPAY ==
[2023-06-14 10:30] LABS: Aspartate Aminotransferase 22 IU/L (17-59); BUN Creatinine Ratio 19.2 (6-22); Blood Urea Nitrogen 15 mg/dL (9-20); Carbon Dioxide 29 mmol/L (22-32); Chloride 102 mmol/L (98-107); Cholesterol 171 mg/dL (140-199); Estimated Glomerular Filt Rate > 60 mL/min (>60); Glucose 106 mg/dL (80-110); HDL Cholesterol 79 mg/dL (40-60); HEMOLYSIS < 15 (0-50); LDL Cholesterol Calculated 78 mg/dL (<100); Sodium 136 mmol/L (137-145); Triglycerides 71 mg/dL (35-150)
[2023-06-14 10:48] LABS: Potassium 5.7 mmol/L (3.4-5.1)
== END ==
PROVIDERS: Family Provider Family Medicine; PCP Internal Medicine; Referring Provider Internal Medicine; Visit Provider Internal Medicine
DX: N40.1 Benign prostatic hyperplasia with lower urinary tract symptoms (principal); E78.2 Mixed hyperlipidemia; N13.8 Other obstructive and reflux uropathy; I10 Essential (primary) hypertension
CPT/HCPCS: 36415; 80048; 80061; 84153; 84450

== ENCOUNTER → 2023-06-15 16:00 | Outpatient (CLI) | payer MEDICARE, OTHER, SELFPAY ==
[2023-06-15 17:11] LABS: HEMOLYSIS < 15 (0-50); Potassium 4.2 mmol/L (3.4-5.1)
== END ==
PROVIDERS: Family Provider Family Medicine; PCP Internal Medicine; Referring Provider Internal Medicine; Visit Provider Internal Medicine
DX: E87.5 Hyperkalemia (principal)
CPT/HCPCS: 36415; 84132

== ENCOUNTER 2023-09-25 05:41 | Emergency (ER) | payer MEDICARE, OTHER, SELFPAY ==
[2023-09-25 05:49] VITALS: BP 160/76; PULSE 76; RESP 18; TEMP 36.3; O2SAT 98; BMI 26.5
--- NOTE | 2023-09-25 05:55 | DI.RAD.S_ITS ---
PROCEDURE: XR CHEST 1V INDICATIONS: chest pain TECHNIQUE: One view of the chest was acquired. COMPARISON: [facility], CR, XR CHEST 1V, 08/15/2019, 21:05. FINDINGS: Surgical changes and devices: None. Lungs and pleura: Lungs are clear. No pleural effusions or pneumothorax. Mediastinum: Mediastinal contours appear normal. Heart size is normal. Bones and chest wall: No suspicious bony lesions. Overlying soft tissues appear unremarkable. IMPRESSION: No acute cardiopulmonary abnormality is seen. This report is concordant with the overnight preliminary interpretation. Dictated by: Evangelist Bentley M.D. on 09/25/2023 at 8:01 Approved by: Evangelist Bentley M.D. on 09/25/2023 at 8:01
[2023-09-25 06:04] VITALS: PULSE 74; RESP 29; O2SAT 96
[2023-09-25 06:06] VITALS: BP 174/77; PULSE 77; RESP 29; O2SAT 98
--- NOTE | 2023-09-25 06:20 | ED.ARRPALP ---
HPI - Arrhythmia/Palpitations General Chief Complaint: Arrhythmia/Palpitations Stated Complaint: irregular heartbeat Time Seen by Provider: 09/25/23 05:46 Source: patient Mode of arrival: Ambulatory History of Present Illness HPI narrative: 73yoM with history of hypertension presents by private vehicle from home for palpitations. Patient states that several years ago he was told that he has premature beats, but was evaluated by cardiology who told him that they were not dangerous and nothing more was done about these beats. Patient and his had a friend unexpectedly recently and have been very stressed about his passing. Last night patient and his had several alcoholic drinks before bed. At 3am he woke up feeling palpitations. These did not improve with time and so he became worried and had his bring him in for evaluation. Related Data Home Medications Medication Instructions Recorded Confirmed cholecalciferol (vitamin D3) 50 50 mcg PO Q OTHER DAY 11/19/20 06/14/23 mcg (2,000 unit) capsule (Vitamin D3) timolol maleate 0.5 % eye drops 1 drp EYE-BOTH 2XD 12/08/21 06/14/23 Previous Rx's Medication Instructions Recorded latanoprost 0.005 % eye drops 1 drop EYE-BOTH QPM #7.5 mL 08/22/18 amlodipine 5 mg tablet 5 mg PO DAILY #90 tabs 08/30/23 losartan 100 mg tablet 100 mg PO QAM #90 tabs 08/30/23 rosuvastatin 10 mg tablet 10 mg PO DAILY #90 tabs 08/30/23 sildenafil (pulm.hypertension) 20 20 mg PO DAILY PRN Erectile 08/30/23 mg tablet Dysfunction #30 tabs metoprolol succinate 25 mg 12.5 mg (1/2 x 25 mg) PO BID #30 09/25/23 tablet,extended release 24 hr tabs Allergies Allergy/AdvReac Type Severity Reaction Status Date / Time alfuzosin AdvReac Intermediate Verified 06/14/23 13:09 cyclobenzaprine AdvReac Intermediate Depression Verified 06/14/23 08:39 Review of Systems Review of Systems Narrative: Negative except as noted above Patient History Medical History (Updated 09/25/23 @ 07:20 by Julia Cheng MD) Erectile dysfunction BPH w urinary obs/LUTS Mixed hyperlipidemia Obstructive sleep apnea of adult Hayfever (~1974) Rubella (~1963) Mumps (~1955) Measles (~1960) Chickenpox (~1955) Glaucoma (~2014) Hearing loss (~2012) Cataracts, bilateral (~2013) Elevated PSA (~2012) Colitis (~1959) Low testosterone (~2004) Skin cancer (~2013) Essential hypertension (~2004) Surgical History (Updated 06/14/23 @ 05:43 by Reed Celestin MD) Hx of colonoscopy (01/13/23) Anesthesia History of tonsillectomy (~1956) Status post laser cataract surgery of both eyes History of prostate surgery (~2020) H/O right inguinal hernia repair S/P right rotator cuff repair (~2014) S/P Mohs surgery for basal cell carcinoma (~2013) Family History Father Coronary artery disease Hypertension Heart attack Brother Coronary artery disease H/O heart bypass surgery Mother Coronary artery disease Diabetes mellitus COPD (chronic obstructive pulmonary disease) Congestive heart failure Grandfather Heart attack Grandmother Uterine cancer Daughter Guillain Villanueva? syndrome Daughter No problems noted. Son No problems noted. 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 household members: spouse lives independently: Yes occupational status: other (Retired) Smoking Status: Former smoker alcohol intake: current substance use type: does not use Smoking Status: Former smoker alcohol intake frequency: 0-2 drinks per day Alcohol type: wine and hard liquor Substance Use Type: does not use Exam Initial Vital Signs Initial Vital Signs: Vital Signs Temperature 97.3 F L 09/25/23 05:49 Pulse Rate 76 09/25/23 05:49 Respiratory Rate 18 09/25/23 05:49 Blood Pressure 160/76 H 09/25/23 05:49 Pulse Oximetry 98 09/25/23 05:49 Oxygen Delivery Method Room Air 09/25/23 05:49 Const: Awake, alert, no acute distress, nontoxic appearing Cardiac: regular rate, regular rhythm RESP: unlabored, clear bilaterally, no wheezing GI: Soft, nontender, nondistended, no rebound, no guarding MSK: Atraumatic, full range of motion, pulses equal Skin: Warm, Dry, intact, no rashes Neuro: AO x3, CN II-XII grossly intact, moves all extremities Course Orders Ordered: Discontinued Medications Aspirin (Aspirin 81 Mg Chew Tab) 324 mg PO NOW ONE Stop: 09/25/23 05:56 Last Admin: 09/25/23 07:03 Dose: Not Given Documented By: GC Vital Signs Vital signs: Vital Signs - 8 hr 09/25/23 05:49 Temperature 97.3 F L Pulse Rate 76 Respiratory Rate 18 Blood Pressure 160/76 H Pulse Oximetry 98 Oxygen Delivery Method Room Air MDM - Arrhythmia/Palpitations Differential Diagnosis Differential diagnosis: Likely palpitations, anxiety and sinus tachycardia Lab Data 09/25/23 06:20 09/25/23 06:20 Labs: Lab Results 09/25/23 Range/Units 06:20 WBC 5.4 (4.5-11.0) X10^3/uL RBC 4.33 L (4.5-5.9) X10^6/uL Hgb 13.7 (13.5-17.5) g/dL Hct 40.3 L (41-53) % MCV 93.3 (80-100) fL MCH 31.6 (26-34) PG MCHC 33.8 (30-36) % RDW 12.5 (11.6-14.8) % Plt Count 156 (150-400) X10^3/uL Neut % (Auto) 66.8 (50-75) % Lymph % (Auto) 20.3 L (25-40) % Crisp % (Auto) 8.1 (3-14) % Eos % (Auto) 3.5 (2-4) % Baso % (Auto) 1.3 (0-2) % Neut # (Auto) 3600 (7272-6464) /uL Lymph # (Auto) 1100 (6038-8690) /uL Crisp # (Auto) 400 (0-900) /uL Eos # (Auto) 200 (0-450) /uL Baso # (Auto) 100 (0-100) /uL PT 11.0 (9.4-12.5) SECONDS INR 1.0 (0.9-1.3) APTT 31 (25.1-36.5) SECONDS Sodium 139 (137-145) mmol/L Potassium 4.4 (3.4-5.1) mmol/L Chloride 110 H (98-107) mmol/L Carbon Dioxide 25 (22-32) mmol/L BUN 21 H (9-20) mg/dL Creatinine 0.65 L (0.66-1.25) mg/dL Estimated GFR > 60 (>60) mL/min BUN/Creatinine Ratio 32.3 H (6-22) Glucose 117 H (80-110) mg/dL Calcium 8.8 (8.4-10.2) mg/dL Magnesium 2.2 (1.6-2.3) mg/dL Total Bilirubin 0.4 (0.2-1.3) mg/dL AST 26 (17-59) IU/L ALT 27 (<50) IU/L Alkaline Phosphatase 41 (38-126) U/L Total Creatine Kinase 59 (55-170) U/L Troponin I < 0.012 (0.01-0.034) ng/mL Total Protein 7.5 (6.3-8.2) g/dL Albumin 4.4 (3.5-5.0) g/dL Globulin 3.1 (1.7-4.1) g/dL Albumin/Globulin Ratio 1.4 (1.0-2.8) Lipase 67 (23-300) U/L Imaging Data Chest x-ray: My Impression: PROCEDURE: XR CHEST 1V INDICATIONS: chest pain TECHNIQUE: One view of the chest was acquired. COMPARISON: [facility], , XR CHEST 1V, 08/15/2019, 21:05. FINDINGS: Surgical changes and devices: None. Lungs and pleura: Lungs are clear. No pleural effusions or pneumothorax. Mediastinum: Mediastinal contours appear normal. Heart size is normal. Bones and chest wall: No suspicious bony lesions. Overlying soft tissues appear unremarkable. IMPRESSION: No acute cardiopulmonary abnormality is seen. This report is concordant with the overnight preliminary interpretation. Dictated by: Evangelist Bentley M.D. on 09/25/2023 at 8:01 Approved by: Evangelist Bentley M.D. on 09/25/2023 at 8:01 ECG Data Interpretation: NSR at 80bpm, normal axis, normal [place], no ST-T wave changes MDM Narrative Medical decision making narrative: Well appearing patient with palpitations. manager monitoring shows frequent PACs. EKG without ischemic findings. Patient has been under significant stress recently and had several alcoholic beverages last night, which may have exacerbated his PACs. Cardiac workup initiated. Laboratory work reveals normal electrolytes, undetectable troponin. Chest x-ray negative for acute findings. Patient has remained on the alarm security or surveillance monitor, frequent PACs are seen however no other abnormal heart rhythms identified. Patient counseled on all lab and imaging findings as well as alarm security or surveillance monitor data collected. Patient recommended to trial decrease caffeine and alcohol intake as well as monitoring stress levels. Obviously the of a close friend is extremely stressful and patient has very little control over these events, hwoever alcohol and caffeine intake can be decreased. I recommended follow up with the initial contact lens manufacturer group that evaluated him for palpitations several years ago. If patient's palpitations do not improve with conservative treatment then I recommended starting low-dose metoprolol. Patient's heart rate is currently 66 beats per minute, and so care should be taken that patient's heart rate and blood pressure did not drop too low. Patient stated that he would like to try conservative measures 1st but would like a prescription of the metoprolol to have on hand depending on how long it can take him to follow up with the cardiology clinic. ED return precautions discussed at bedside. Patient expressed understanding of the plan and is in agreement at this time. All questions answered at the time of discharge. Discharge Plan Departure Patient Disposition: Home Clinical Impression: Atrial premature beats Instructions: Premature Ventricular Beats Activity Restrictions/Additional Instructions: Take steps to minimize things that may stress your heart such as alcohol intake, stress, caffeine intake. If after several days you are not noticing relief from your PACs then you may start taking the metoprolol. We carefully as this may lower your blood pressure. Follow up with your contact lens manufacturer. Prescriptions: New metoprolol succinate 25 mg tablet extended release 24 hr 12.5 mg PO BID Qty: 30 0RF No Action rosuvastatin 10 mg tablet 10 mg PO DAILY Qty: 90 3RF losartan 100 mg tablet 100 mg PO QAM Qty: 90 3RF amlodipine 5 mg tablet 5 mg PO DAILY Qty: 90 3RF sildenafil (pulm.hypertension) 20 mg tablet 20 mg PO DAILY PRN (Reason: Erectile Dysfunction) Qty: 30 5RF latanoprost 0.005 % drops 1 drop EYE-BOTH QPM Qty: 7.5 0RF cholecalciferol (vitamin D3) [Vitamin D3] 50 mcg (2,000 unit) Capsule 50 mcg PO Q OTHER DAY timolol maleate 0.5 % drops 1 drp EYE-BOTH 2XD Referrals: Reed Celestin MD [Primary Care Provider] - Stand Alone Forms: Patient Portal/API
[2023-09-25 06:29] LABS: Add Manual Diff / Slide Review NO; Basophils Absolute Auto 100 /uL (0-100); Basophils Percent Auto 1.3 % (0-2); Eosinophils Absolute Auto 200 /uL (0-450); Eosinophils Percent Auto 3.5 % (2-4); Hematocrit 40.3 % (41-53); Hemoglobin 13.7 g/dL (13.5-17.5); Lymphocytes Absolute Auto 1100 /uL (1100-4500); Lymphocytes Percent Auto 20.3 % (25-40); Mean Corpuscular HGB Conc 33.8 % (30-36); Mean Corpuscular Hemoglobin 31.6 PG (26-34); Mean Corpuscular Volume 93.3 fL (80-100); Monocytes Absolute Auto 400 /uL (0-900); Monocytes Percent Auto 8.1 % (3-14); Neutrophils Absolute Auto 3600 /uL (1500-7000); Neutrophils Percent Auto 66.8 % (50-75); Platelet Count 156 X10^3/uL (150-400); Red Blood Cell Count 4.33 X10^6/uL (4.5-5.9); Red Cell Distribution Width 12.5 % (11.6-14.8); White Blood Cell Count 5.4 X10^3/uL (4.5-11.0)
[2023-09-25 06:30] VITALS: PULSE 73; RESP 19; O2SAT 93
[2023-09-25 06:39] LABS: PTT Partial Thromboplastin Tim 31 SECONDS (25.1-36.5)
[2023-09-25 06:41] LABS: Alanine Aminotransferase 27 IU/L (<50); Albumin 4.4 g/dL (3.5-5.0); Albumin Globulin Ratio 1.4 (1.0-2.8); Alkaline Phosphatase 41 U/L (38-126); Aspartate Aminotransferase 26 IU/L (17-59); BUN Creatinine Ratio 32.3 (6-22); Bilirubin Total 0.4 mg/dL (0.2-1.3); Blood Urea Nitrogen 21 mg/dL (9-20); Calcium 8.8 mg/dL (8.4-10.2); Carbon Dioxide 25 mmol/L (22-32); Chloride 110 mmol/L (98-107); Creatine Kinase 59 U/L (55-170); Estimated Glomerular Filt Rate > 60 mL/min (>60); Globulin 3.1 g/dL (1.7-4.1); Glucose 117 mg/dL (80-110); HEMOLYSIS < 15 (0-50); Lipase 67 U/L (23-300); Magnesium 2.2 mg/dL (1.6-2.3); Potassium 4.4 mmol/L (3.4-5.1); Sodium 139 mmol/L (137-145); Total Protein 7.5 g/dL (6.3-8.2)
[2023-09-25 06:52] LABS: Troponin I < 0.012 ng/mL (0.01-0.034)
[2023-09-25 07:00] VITALS: PULSE 68; RESP 23; O2SAT 94
== END 2023-09-25 07:36 | disposition home or self-care (01) ==
PROVIDERS: Emergency Provider Emergency Medicine; Family Provider Family Medicine; PCP Internal Medicine
DX: I49.1 Atrial premature depolarization (principal)
CPT/HCPCS: 36415; 71045; 80053; 82550; 83690; 83735; 84484; 85025; 85610; 85730; 93005; 93010; 99284

== ENCOUNTER → 2023-12-07 11:30 | Outpatient (CLI) | payer MEDICARE, OTHER, SELFPAY ==
[2023-12-07 14:15] LABS: TSH w/ Reflex to FT4 2.04 uIU/mL (0.47-4.68)
== END ==
PROVIDERS: Family Provider Family Medicine; PCP Internal Medicine; Referring Provider Internal Medicine; Visit Provider Internal Medicine
DX: I48.0 Paroxysmal atrial fibrillation (principal)
CPT/HCPCS: 36415; 84443

== ENCOUNTER → 2024-01-09 08:00 | Outpatient (CLI) | payer MEDICARE, OTHER, SELFPAY ==
--- NOTE | 2024-01-09 08:20 | DI.ECHO.S_ITS ---
[place] [facility]---------+ [facility] : : [address] : [address] : : [id number] : : Phone: [phone] Echocardiogram Report + + :Name: ARCHANA MELCHOR Study Date: 01/09/2024 Height: 69 in : :[facility] ReadingLocation: Weight: 185 lb : : Gender: Male BSA: 2.0 m2 : :: 1950 Age: 73 yrs BP: 137/79 mmHg: :Reason For Study: ATRIAL FIBRILLATION : :Ordering Physician: MARKUS, : :LEISA Performed By: Georgina Arellano : :Referring: LEISA APARICIO : + + Interpretation Summary The patient was in sinus rhythm with heart rates between 55-66 bpm during the exam. The ejection fraction is estimated to be 55-60%. Diastolic parameters suggest probable normal left ventricular diastolic function and normal filling pressures. The right ventricle is normal in size and function. The right ventricular systolic pressure is estimated to be at least 29 mmHg based on an estimated right atrial pressure of 3 mm Hg. There is mild tricuspid regurgitation. Procedure: A two-dimensional transthoracic echocardiogram with color flow and Doppler was performed. The study quality was technically adequate. There is no prior echocardiogram noted for this patient. The patient was in sinus rhythm with heart rates between 55-66 bpm during the exam. Left Ventricle: The left ventricle is normal in size and wall thickness. The ejection fraction is estimated to be 55-60%. There are no obvious focal wall motion abnormalities noted but poor endocardial definition reduces the sensitivity for the detection of such. Diastolic parameters suggest probable normal left ventricular diastolic function and normal filling pressures. Right Ventricle: The right ventricle is normal in size and function. Atria: The left atrium is borderline dilated. Right atrial size is normal. There is no Doppler evidence for an interatrial shunt. Mitral Valve: The mitral valve is normal in structure and function. There is trace mitral regurgitation. Aortic Valve: The aortic valve is trileaflet. The aortic valve opens well. The aortic valve is slightly calcified. There is no aortic valve stenosis. No aortic regurgitation is present. Tricuspid Valve: The tricuspid valve is normal in structure and function. There is mild tricuspid regurgitation. The right ventricular systolic pressure is estimated to be at least 29 mmHg based on an estimated right atrial pressure of 3 mm Hg. Pulmonic Valve: The pulmonic valve leaflets are thin and pliable; valve motion is normal. There is mild pulmonic regurgitation. Great Vessels: The aortic root is normal size. The dimensions of the ascending aorta are normal. The IVC is of normal diameter and collapses greater than 50% with a sniff. This suggests a low right atrial pressure of 3 mm Hg. Pericardium/ Pleura There is no pericardial effusion. There is no pleural effusion. MMode/2D Measurements & Calculations LVIDd: 5.5 cm LVOT diam: 2.2 cm LVIDs: 3.7 cm Ao root diam: 3.4 cm FS: 31.9 % asc Aorta Diam: 3.7 cm EPSS: 0.71 cm Ao Arch Diam (Prox Trans): 2.8 cm IVSd: 0.88 cm LVPWd: 0.76 cm LV mata. diameter/BSA (cm/m^2): 2.8 LV sys. diameter/BSA (cm/m^2): 1.9 LA A2 area: 22.4 cm2 RA long axis: 4.7 cm LA A4 area: 20.8 cm2 RA area: 13.6 cm2 LA length (vol): 5.9 cm RA vol: 33.4 ml LA vol: 67.3 ml RA : 16.7 ml/m2 LA vol index: 33.7 ml/m2 IVC diam: 1.4 cm RVD1 (basal): 3.9 cm RVD2 (mid): 3.4 cm TAPSE: 1.9 cm Doppler Measurements & Calculations Ao V2 max: 155.3 cm/sec LVOT Max Sanjay: 118.1 cm/sec Ao V2 mean: 103.9 cm/sec LV V1 max P.6 mmHg Ao max P.6 mmHg LV V1 VTI: 25.8 cm Ao mean P.9 mmHg ROBY(I,D): 2.9 cm2 Ao V2 VTI: 33.2 cm ROBY(V,D): 2.8 cm2 sev ratio: 0.78 ROBY indexed to BSA (cm^2/m^2): 1.4 MV E max sanjay: 70.5 cm/sec TR max sanjay: 257.0 cm/sec MV A max sanjay: 87.3 cm/sec TR max P.4 mmHg MV E/A: 0.81 PA V2 max: 93.3 cm/sec Med Peak E' Sanjay: 7.2 cm/sec PA V2 mean: 70.3 cm/sec E/E' med: 9.8 PA mean P.1 mmHg Lat Peak E' Sanjay: 8.7 cm/sec PA pr(Accel): 44.7 mmHg E/E' lat: 8.1 E/e' average: 9.0 MV dec time: 0.25 sec SV(LVOT): 95.8 ml Reading Physician:RILEY
== END ==
PROVIDERS: Family Provider Family Medicine; PCP Internal Medicine; Referring Provider Internal Medicine; Visit Provider Internal Medicine
DX: I37.1 Nonrheumatic pulmonary valve insufficiency (principal); I07.1 Rheumatic tricuspid insufficiency; I48.0 Paroxysmal atrial fibrillation
CPT/HCPCS: 93306

== ENCOUNTER → 2024-09-11 07:50 | Outpatient (CLI) | payer MEDICARE, SELFPAY ==
[2024-09-11 08:34] LABS: Hematocrit 44.2 % (41-53); Mean Corpuscular HGB Conc 33.9 % (30-36); Mean Corpuscular Hemoglobin 31.6 PG (26-34); Mean Corpuscular Volume 93.2 fL (80-100); Platelet Count 166 X10^3/uL (150-400); Red Blood Cell Count 4.75 X10^6/uL (4.5-5.9); Red Cell Distribution Width 12.3 % (11.6-14.8); White Blood Cell Count 3.9 X10^3/uL (4.5-11.0)
[2024-09-11 08:42] LABS: Hemoglobin A1C% w Est Avg Glu 5.3 % (4.0-6.0)
[2024-09-11 08:48] LABS: Aspartate Aminotransferase 36 IU/L (17-59); BUN Creatinine Ratio 19.5 (6-22); Blood Urea Nitrogen 15 mg/dL (9-20); Calcium 9.7 mg/dL (8.4-10.2); Carbon Dioxide 27 mmol/L (22-32); Chloride 101 mmol/L (98-107); Cholesterol 135 mg/dL (140-199); Estimated Glomerular Filt Rate > 60 mL/min (>60); Glucose 104 mg/dL (80-110); HDL Cholesterol 78 mg/dL (40-60); HEMOLYSIS 20 (0-50); LDL Cholesterol Calculated 42 mg/dL (<100); Potassium 5.1 mmol/L (3.4-5.1); Sodium 139 mmol/L (137-145); Triglycerides 74 mg/dL (35-150)
[2024-09-11 09:16] LABS: Prostate Specific Antigen 1.19 ng/mL (0.10-4.00)
== END ==
PROVIDERS: Family Provider Family Medicine; PCP Internal Medicine; Referring Provider Internal Medicine; Visit Provider Internal Medicine
DX: I48.0 Paroxysmal atrial fibrillation (principal); R73.09 Other abnormal glucose; E78.2 Mixed hyperlipidemia; N40.1 Benign prostatic hyperplasia with lower urinary tract symptoms; N13.8 Other obstructive and reflux uropathy
CPT/HCPCS: 36415; 80048; 80061; 83036; 84153; 84450; 85027